=== PATIENT | male | born 1930 | race Caucasian/White ===

== ENCOUNTER 2016-09-24 12:04 | Inpatient (IN) | payer MEDICARE ==
[2016-09-24] MEDS ORDERED: Acetaminophen 325 MG TAB PO PRN (16:35)
[2016-09-24] MEDS ORDERED: Ondansetron ODT 4 MG TAB PO PRN (16:35)
[2016-09-24] MEDS ORDERED: HYDROcodone/Acetaminophen 5/325 mg Tablet PO PRN (16:36)
[2016-09-24] MEDS ORDERED: Warfarin Sodium 2 MG TAB ONE (17:58)
[2016-09-24] MEDS ORDERED: Warfarin Sodium 2 MG TAB PO SCH (18:15)
[2016-09-24] MEDS: Metoprolol Tartrate 50 MG TAB PO SCH (20:13)
[2016-09-24] MEDS: Tamsulosin HCl 0.4 MG CAP PO SCH (20:13)
[2016-09-24] MEDS: Docusate 100 MG CAP PO SCH (20:25)
[2016-09-25 04:56] LABS: #Eosinphils 0.1 thou/uL (0.0-0.7); #Lymphocytes 0.5 thou/uL (1.20-3.40); #Monocytes 0.6 thou/uL (0.11-0.59); #Neutrophils 5.3 thou/uL (1.40-6.50); %Basophils 0.7 % (0.0-1.0); %Eosinophils 1.4 % (0.0-10.0); %Lymphocytes 8.2 % (21.0-51.0); %Monocytes 8.7 % (0.0-10.0); %Neutrophils 80.9 % (42.0-75.0); Hemoglobin 11.2 g/dL (14.0-18.0); Mean Corpuscular HGB CONC 34.1 g/dL (32.0-36.0); Mean Corpuscular Hemoglobin 32.9 pg (27.0-31.0); Mean Corpuscular Volume 96.5 fl (80.0-94.0); Mean Platelet Volume 9.6 fL (7.4-10.4); Platelet Count 210 thou/uL (130-400); RBC Distribution Width 12.4 % (11.5-14.5); White Blood Cell (WBC) Count 6.6 thou/uL (4.8-10.8)
[2016-09-25 04:59] LABS: INR-International Normal Ratio 1.2
--- NOTE | 2016-09-25 06:41 | HP ---
DATE OF ADMISSION: 09/24/2016 ADMITTING PHYSICIAN: Richard Johnson M.D. PRIMARY CARE PHYSICIAN: Dr. Chelsea Sims. REASON FOR ADMISSION: Skilled rehabilitation to [facility] for physical therapy status post open reduction and internal fixation of his left transverse patellar fracture after a fall at home. HISTORY OF PRESENT ILLNESS: Mr. Hardy is an 86-year-old male with a medical history of hypertension, dyslipidemia, kidney stones, prostate cancer, previous [place] and CAD status post cardiac catheterization and stents placement. Patient reports he sustained a fall on 09/12/2016, at his home landing on his left knee. He was evaluated at [facility] on 09/12/2016 and x- rays that reviewed a displaced left patellar fracture. Patient was placed in a knee immobilizer and was seen by Orthopedic surgeon who scheduled a inpatient surgery for 09/21/2016. Patient underwent an open reduction and internal fixation of his left transverse patellar fracture and he tolerated the procedure well. He was doing well status post his surgery and pain was well controlled. Patient started physical therapy while in hospital. He had no complications after the surgery. Due to patient being and living by himself at home, it was recommended he come to [facility] to continue skilled rehabilitation. When I saw patient today, he was happy to be in the [facility]. He denied any fevers, any nausea, vomiting, no recent falls. He complains of some pain to his left knee, but he said pain is well controlled with current pain medication. Patient would like to go home if possible on , but concerned about difficulty going in and out of motor vehicle. Otherwise no concerns, he had a large bowel movement last night after drinking prune juice. PAST MEDICAL HISTORY: 1. Hypertension. 2. Gastroesophageal reflux disease. 3. BPH. 4. History of prostate cancer. 5. Coronary artery disease with history of bypass graft. 6. Atrial fibrillation on chronic, anticoagulant warfarin. PAST SURGICAL HISTORY: Lumbar surgery in [place], [place] in 1991. Cardiac bypass 2013, knee surgery in , kidney stone radiation of prostate cancer in 2004. FAMILY HISTORY: History of strokes and Parkinson's disease. SOCIAL HISTORY: Patient is a former tobacco user. No alcohol use. , retired. MEDICATIONS: Amiodarone 200 daily, amlodipine 10 daily, warfarin 4 mg daily, metoprolol 50 b.i.d., tamsulosin 0.4 daily, furosemide 40 daily, aspirin 81 mg daily, [place] 10/325 one tab q.4 hours p.r.n. pain. ALLERGIES: MORPHINE. REVIEW OF SYSTEMS: General: Patient complains of weakness and left knee pain. Denies melena. Denies any fevers. Eyes: Negative for pain, blurry vision, or discharge. HEENT: Denies sinus pain, sore throat, ear pain discharge. Cardiovascular: Denies chest pain, denies shortness of breath. Respiratory: Denies cough, sputum production. Gastrointestinal: Denies abdominal pain, constipation, diarrhea, hematochezia, or melena. Musculoskeletal: Complains of weakness, knee pain. Neurological: Denies confusion, altered mental status, or headaches. Psychiatric: Denies depression. Skin: Complains of bruising all over bodies status post fall. PHYSICAL EXAMINATION: VITAL SIGNS: Temperature 98.1, respirations 20, pulse 63, O2 sat 96% on room air, blood pressure 135/70. GENERAL APPEARANCE: Patient is alert, awake, oriented x3 in no apparent distress, pleasant. Face no asymmetry. HEENT: Normocephalic, atraumatic. Positive glass. EOM intact. Pupils are round and reactive to light. Clear nares. CARDIOVASCULAR: Regular rate. Normal S1, S2. RESPIRATORY: Clear to auscultation bilaterally. GASTROINTESTINAL: Soft, nontender, positive bowel sounds. EXTREMITIES: No clubbing, no cyanosis, no edema. Left lower extremities with immobilize, dressing to patellar, clean, dry, and intact, mild swelling and tenderness to touch, able to wiggle his toes. SKIN: Multiple black and blue bruises to his left face, left elbow, healing laceration on the left upper eyelid, his right elbow with multiple black and blue bruises. NEUROLOGIC: No focal exam: Reflexes is intact. Pulses +2 bilaterally. ASSESSMENT AND PLAN: This is an 86-year-old male with multiple history listed in the HPI, who was transferred from [facility] in [place] after admission from 09/21-09/24 for skilled rehabilitation status post fall, status fall ORIF of his left patella. Patient will be admitted to [facility] for skilled rehabilitation. We will consult physical therapy for strengthening gait and balance training. We will consult occupational therapy to address activities of daily living, assistive devices. We will restart all patient's home medication. The patient is to follow up with Dr. Navarrete for wound checks in 10-14 days, darling and suture removal to be done on 10/01/2016. We will monitor daily INR and PT as patient is on Coumadin daily. We will give Colace b.i.d. for stool softeners. We will continue patient on Protonix for gastrointestinal prophylaxis since the patient is already on anticoagulants with Coumadin for deep venous thrombosis prophylaxis. We will monitor patient closely for any medical instability or hemodynamic changes. Anticipated length of stay 4-5 weeks. Patient interested in Home health care services upon discharge. CODE STATUS: FULL CODE MTDD
[2016-09-25] MEDS: Aspirin 81 mg Enteric Coated Tablet PO SCH (08:35)
[2016-09-25] MEDS: Docusate 100 MG CAP PO SCH ×2 (08:35→20:12)
[2016-09-25] MEDS: Furosemide 40 MG TAB PO SCH (08:35)
[2016-09-25] MEDS: Metoprolol Tartrate 50 MG TAB PO SCH ×2 (08:36→20:12)
[2016-09-25] MEDS ORDERED: Warfarin Sodium 2 MG TAB PO SCH (17:00)
[2016-09-25] MEDS: Warfarin Sodium 2 MG TAB PO SCH (18:05)
[2016-09-25] MEDS: Tamsulosin HCl 0.4 MG CAP PO SCH (20:12)
[2016-09-26] MEDS: Docusate 100 MG CAP PO SCH ×2 (08:38→20:55)
[2016-09-26] MEDS: Aspirin 81 mg Enteric Coated Tablet PO SCH (08:38)
[2016-09-26] MEDS: Metoprolol Tartrate 50 MG TAB PO SCH ×2 (08:39→20:55)
[2016-09-26] MEDS: Furosemide 40 MG TAB PO SCH (08:39)
[2016-09-26 16:38] LABS: INR-International Normal Ratio 1.3; Prothrombin Time 16.7 SEC (12.0-14.7)
[2016-09-26] MEDS: Warfarin Sodium 2 MG TAB PO SCH (17:09)
[2016-09-26] MEDS: Tamsulosin HCl 0.4 MG CAP PO SCH (20:55)
[2016-09-27 06:06] LABS: Hemoglobin 11.2 g/dL (14.0-18.0); Platelet Count 216 thou/uL (130-400)
[2016-09-27] MEDS: Aspirin 81 mg Enteric Coated Tablet PO SCH (09:19)
[2016-09-27] MEDS: Docusate 100 MG CAP PO SCH ×2 (09:19→22:03)
[2016-09-27] MEDS: Metoprolol Tartrate 50 MG TAB PO SCH ×2 (09:19→22:03)
[2016-09-27] MEDS: Furosemide 40 MG TAB PO SCH (09:19)
[2016-09-27 11:55] LABS: INR-International Normal Ratio 1.5; Prothrombin Time 17.9 SEC (12.0-14.7)
[2016-09-27] MEDS: Warfarin Sodium 2 MG TAB PO SCH (17:40)
[2016-09-27] MEDS: Tamsulosin HCl 0.4 MG CAP PO SCH (22:02)
[2016-09-28 05:05] LABS: INR-International Normal Ratio 1.6; Prothrombin Time 19.5 SEC (12.0-14.7)
[2016-09-28] MEDS: Aspirin 81 mg Enteric Coated Tablet PO SCH (08:48)
[2016-09-28] MEDS: Metoprolol Tartrate 50 MG TAB PO SCH ×2 (08:49→20:28)
[2016-09-28] MEDS: Furosemide 40 MG TAB PO SCH (08:49)
[2016-09-28] MEDS: Docusate 100 MG CAP PO SCH ×2 (08:51→20:27)
[2016-09-28] MEDS: Warfarin Sodium 2.5 MG TAB PO SCH (16:59)
[2016-09-28] MEDS: Tamsulosin HCl 0.4 MG CAP PO SCH (20:28)
[2016-09-29 05:13] LABS: INR-International Normal Ratio 1.9; Prothrombin Time 21.7 SEC (12.0-14.7)
[2016-09-29] MEDS: Metoprolol Tartrate 50 MG TAB PO SCH ×2 (08:31→20:44)
[2016-09-29] MEDS: Furosemide 40 MG TAB PO SCH (08:31)
[2016-09-29] MEDS: Docusate 100 MG CAP PO SCH ×2 (08:31→20:44)
[2016-09-29] MEDS: Aspirin 81 mg Enteric Coated Tablet PO SCH (08:31)
[2016-09-29] MEDS: Warfarin Sodium 2.5 MG TAB PO SCH (17:15)
[2016-09-29] MEDS: Tamsulosin HCl 0.4 MG CAP PO SCH (20:44)
[2016-09-30 05:06] LABS: INR-International Normal Ratio 2.2; Prothrombin Time 24.3 SEC (12.0-14.7)
[2016-09-30] MEDS: Metoprolol Tartrate 50 MG TAB PO SCH ×2 (08:48→21:17)
[2016-09-30] MEDS: Aspirin 81 mg Enteric Coated Tablet PO SCH (08:48)
[2016-09-30] MEDS: Docusate 100 MG CAP PO SCH ×2 (08:48→21:17)
[2016-09-30] MEDS: Furosemide 40 MG TAB PO SCH (08:48)
[2016-09-30] MEDS: Warfarin Sodium 2.5 MG TAB PO SCH (17:09)
[2016-09-30] MEDS: Tamsulosin HCl 0.4 MG CAP PO SCH (21:17)
[2016-10-01] MEDS: Metoprolol Tartrate 50 MG TAB PO SCH ×2 (08:39→22:40)
[2016-10-01] MEDS: Docusate 100 MG CAP PO SCH ×2 (08:39→22:40)
[2016-10-01] MEDS: Furosemide 40 MG TAB PO SCH (08:39)
[2016-10-01] MEDS: Aspirin 81 mg Enteric Coated Tablet PO SCH (08:39)
[2016-10-01] MEDS: Warfarin Sodium 2.5 MG TAB PO SCH (17:14)
[2016-10-01] MEDS ORDERED: Docusate 100 MG CAP ONE (21:39)
[2016-10-01] MEDS: Tamsulosin HCl 0.4 MG CAP PO SCH (22:40)
[2016-10-02 05:55] LABS: INR-International Normal Ratio 3.1; Prothrombin Time 31.2 SEC (12.0-14.7)
[2016-10-02] MEDS: Docusate 100 MG CAP PO SCH ×2 (08:33→20:43)
[2016-10-02] MEDS: Aspirin 81 mg Enteric Coated Tablet PO SCH (08:36)
[2016-10-02] MEDS: Furosemide 40 MG TAB PO SCH (08:36)
[2016-10-02] MEDS: Metoprolol Tartrate 50 MG TAB PO SCH ×2 (08:36→20:43)
[2016-10-02] MEDS ORDERED: Warfarin Sodium 5 MG TAB PO SCH (17:00)
[2016-10-02] MEDS: Tamsulosin HCl 0.4 MG CAP PO SCH (20:43)
[2016-10-03] MEDS: Aspirin 81 mg Enteric Coated Tablet PO SCH (08:51)
[2016-10-03] MEDS: Metoprolol Tartrate 50 MG TAB PO SCH ×2 (08:51→20:15)
[2016-10-03] MEDS: Furosemide 40 MG TAB PO SCH (08:52)
[2016-10-03] MEDS: Docusate 100 MG CAP PO SCH ×2 (08:52→20:15)
[2016-10-03 09:44] LABS: INR-International Normal Ratio 3.4; Prothrombin Time 33.7 SEC (12.0-14.7)
[2016-10-03] MEDS: Warfarin Sodium 5 MG TAB PO SCH (17:13)
[2016-10-03] MEDS: Tamsulosin HCl 0.4 MG CAP PO SCH (20:15)
[2016-10-04] MEDS: Metoprolol Tartrate 50 MG TAB PO SCH ×2 (08:54→20:58)
[2016-10-04] MEDS: Docusate 100 MG CAP PO SCH ×2 (08:54→20:58)
[2016-10-04] MEDS: Aspirin 81 mg Enteric Coated Tablet PO SCH (08:54)
[2016-10-04] MEDS: Furosemide 40 MG TAB PO SCH (08:55)
[2016-10-04 10:14] LABS: INR-International Normal Ratio 3.6; Prothrombin Time 35.6 SEC (12.0-14.7)
[2016-10-04] MEDS: Warfarin Sodium 5 MG TAB PO SCH (17:25)
[2016-10-04] MEDS: Tamsulosin HCl 0.4 MG CAP PO SCH (20:57)
[2016-10-05] MEDS: Docusate 100 MG CAP PO SCH ×2 (08:01→20:34)
[2016-10-05] MEDS: Aspirin 81 mg Enteric Coated Tablet PO SCH (08:02)
[2016-10-05] MEDS: Metoprolol Tartrate 50 MG TAB PO SCH ×2 (08:02→20:34)
[2016-10-05] MEDS: Furosemide 40 MG TAB PO SCH (08:02)
[2016-10-05 10:04] LABS: Prothrombin Time 38.2 SEC (12.0-14.7)
[2016-10-05] MEDS: Tamsulosin HCl 0.4 MG CAP PO SCH (20:34)
[2016-10-06 05:14] LABS: Prothrombin Time 38.5 SEC (12.0-14.7)
[2016-10-06] MEDS: Metoprolol Tartrate 50 MG TAB PO SCH ×2 (08:17→21:00)
[2016-10-06] MEDS: Aspirin 81 mg Enteric Coated Tablet PO SCH (08:17)
[2016-10-06] MEDS: Furosemide 40 MG TAB PO SCH (08:17)
[2016-10-06] MEDS: Docusate 100 MG CAP PO SCH ×2 (08:18→21:00)
[2016-10-06] MEDS: Tamsulosin HCl 0.4 MG CAP PO SCH (21:00)
[2016-10-07] MEDS: Metoprolol Tartrate 50 MG TAB PO SCH ×2 (08:42→20:50)
[2016-10-07] MEDS: Aspirin 81 mg Enteric Coated Tablet PO SCH (08:42)
[2016-10-07] MEDS: Furosemide 40 MG TAB PO SCH (08:43)
[2016-10-07] MEDS: Docusate 100 MG CAP PO SCH ×2 (08:43→20:50)
[2016-10-07 13:18] LABS: INR-International Normal Ratio 2.9; Prothrombin Time 29.8 SEC (12.0-14.7)
[2016-10-07] MEDS ORDERED: Warfarin Sodium 5 MG TAB PO SCH (17:00)
[2016-10-07] MEDS: Warfarin Sodium 2.5 MG TAB PO SCH (17:14)
[2016-10-07] MEDS: Tamsulosin HCl 0.4 MG CAP PO SCH (20:50)
[2016-10-08 05:12] LABS: INR-International Normal Ratio 2.8; Prothrombin Time 28.9 SEC (12.0-14.7)
[2016-10-08] MEDS: Metoprolol Tartrate 50 MG TAB PO SCH ×2 (08:27→20:15)
[2016-10-08] MEDS: Furosemide 40 MG TAB PO SCH (08:28)
[2016-10-08] MEDS: Aspirin 81 mg Enteric Coated Tablet PO SCH (08:28)
[2016-10-08] MEDS: Docusate 100 MG CAP PO SCH ×2 (08:28→20:15)
[2016-10-08] MEDS: Warfarin Sodium 2.5 MG TAB PO SCH (17:04)
[2016-10-08] MEDS: Tamsulosin HCl 0.4 MG CAP PO SCH (20:15)
[2016-10-09 07:11] LABS: INR-International Normal Ratio 2.4; Prothrombin Time 26.2 SEC (12.0-14.7)
[2016-10-09] MEDS: Docusate 100 MG CAP PO SCH ×2 (08:40→21:05)
[2016-10-09] MEDS: Furosemide 40 MG TAB PO SCH (08:40)
[2016-10-09] MEDS: Aspirin 81 mg Enteric Coated Tablet PO SCH (08:40)
[2016-10-09] MEDS: Metoprolol Tartrate 50 MG TAB PO SCH ×2 (08:40→21:04)
[2016-10-09] MEDS: Warfarin Sodium 2.5 MG TAB PO SCH (17:05)
[2016-10-09] MEDS: Tamsulosin HCl 0.4 MG CAP PO SCH (21:04)
[2016-10-10] MEDS: Aspirin 81 mg Enteric Coated Tablet PO SCH (08:21)
[2016-10-10] MEDS: Furosemide 40 MG TAB PO SCH (08:21)
[2016-10-10] MEDS: Docusate 100 MG CAP PO SCH ×2 (08:21→21:19)
[2016-10-10] MEDS: Metoprolol Tartrate 50 MG TAB PO SCH ×2 (08:21→21:18)
[2016-10-10 17:11] LABS: INR-International Normal Ratio 2.1; Prothrombin Time 23.7 SEC (12.0-14.7)
[2016-10-10] MEDS: Warfarin Sodium 2.5 MG TAB PO SCH (17:25)
[2016-10-10] MEDS: Tamsulosin HCl 0.4 MG CAP PO SCH (21:24)
[2016-10-11] MEDS: Docusate 100 MG CAP PO SCH ×2 (08:22→20:18)
[2016-10-11] MEDS: Metoprolol Tartrate 50 MG TAB PO SCH ×2 (08:22→20:17)
[2016-10-11] MEDS: Furosemide 40 MG TAB PO SCH (08:23)
[2016-10-11] MEDS: Aspirin 81 mg Enteric Coated Tablet PO SCH (08:23)
[2016-10-11] MEDS: Warfarin Sodium 2.5 MG TAB PO SCH (17:01)
[2016-10-11] MEDS: Tamsulosin HCl 0.4 MG CAP PO SCH (20:17)
[2016-10-12] MEDS: Docusate 100 MG CAP PO SCH ×2 (08:15→20:25)
[2016-10-12] MEDS: Aspirin 81 mg Enteric Coated Tablet PO SCH (08:15)
[2016-10-12] MEDS: Metoprolol Tartrate 50 MG TAB PO SCH ×2 (08:15→20:25)
[2016-10-12] MEDS: Furosemide 40 MG TAB PO SCH (08:16)
[2016-10-12 16:27] LABS: INR-International Normal Ratio 1.9; Prothrombin Time 21.6 SEC (12.0-14.7)
[2016-10-12] MEDS: Warfarin Sodium 2.5 MG TAB PO SCH (17:13)
[2016-10-12] MEDS: Tamsulosin HCl 0.4 MG CAP PO SCH (20:25)
[2016-10-13 04:58] VITALS: BMI 30.7
[2016-10-13] MEDS: Metoprolol Tartrate 50 MG TAB PO SCH ×2 (08:16→20:17)
[2016-10-13] MEDS: Aspirin 81 mg Enteric Coated Tablet PO SCH (08:16)
[2016-10-13] MEDS: Docusate 100 MG CAP PO SCH ×2 (08:17→20:17)
[2016-10-13] MEDS: Furosemide 40 MG TAB PO SCH (08:17)
[2016-10-13 16:55] LABS: INR-International Normal Ratio 1.8; Prothrombin Time 20.6 SEC (12.0-14.7)
[2016-10-13] MEDS: Warfarin Sodium 2.5 MG TAB PO SCH (17:02)
[2016-10-13] MEDS: Tamsulosin HCl 0.4 MG CAP PO SCH (20:16)
[2016-10-14 05:01] LABS: INR-International Normal Ratio 1.7
[2016-10-14] MEDS: Docusate 100 MG CAP PO SCH ×2 (08:18→20:36)
[2016-10-14] MEDS: Metoprolol Tartrate 50 MG TAB PO SCH ×2 (08:19→20:36)
[2016-10-14] MEDS: Furosemide 40 MG TAB PO SCH (08:19)
[2016-10-14] MEDS: Aspirin 81 mg Enteric Coated Tablet PO SCH (08:19)
[2016-10-14] MEDS ORDERED: Warfarin Sodium 2 MG TAB PO SCH (17:00)
[2016-10-14] MEDS: Warfarin Sodium 1 MG TAB PO SCH (17:18)
[2016-10-14 20:01] LABS: Bilirubin Negative (Negative); Blood, Urine Small (Negative); Clarity Cloudy (Clear); Glucose, Urine (Dipstick) Negative (Negative); Leukocyte Moderate (Negative); Nitrite Positive (Negative); Protein, Urine (Dipstick) Negative (Neg-Trace); Specific Gravity, Urine 1.015 (1.005-1.030); Urobilinogen 0.2 mg/dL (0.2-1.0)
[2016-10-14 20:09] LABS: Bacteria/HPF 3+ HPF (None Seen); Squamous Epithelial 0-3 HPF (0-3)
[2016-10-14] MEDS: Tamsulosin HCl 0.4 MG CAP PO SCH (20:36)
[2016-10-15 05:06] LABS: INR-International Normal Ratio 1.5; Prothrombin Time 18.5 SEC (12.0-14.7)
[2016-10-15] MEDS: Docusate 100 MG CAP PO SCH ×2 (08:30→20:50)
[2016-10-15] MEDS: Metoprolol Tartrate 50 MG TAB PO SCH ×2 (08:30→20:50)
[2016-10-15] MEDS: Aspirin 81 mg Enteric Coated Tablet PO SCH (08:30)
[2016-10-15] MEDS: Furosemide 40 MG TAB PO SCH (08:30)
[2016-10-15] MEDS: Warfarin Sodium 1 MG TAB PO SCH (17:08)
[2016-10-15] MEDS: Tamsulosin HCl 0.4 MG CAP PO SCH (20:50)
[2016-10-16 04:59] LABS: INR-International Normal Ratio 1.5
[2016-10-16] MEDS: Metoprolol Tartrate 50 MG TAB PO SCH ×2 (08:18→21:03)
[2016-10-16] MEDS: Docusate 100 MG CAP PO SCH ×2 (08:19→21:03)
[2016-10-16] MEDS: Aspirin 81 mg Enteric Coated Tablet PO SCH (08:19)
[2016-10-16] MEDS: Furosemide 40 MG TAB PO SCH (08:19)
[2016-10-16] MEDS: Warfarin Sodium 2 MG TAB PO SCH (17:22)
[2016-10-16] MEDS: Tamsulosin HCl 0.4 MG CAP PO SCH (21:03)
[2016-10-17 07:44] LABS: INR-International Normal Ratio 1.5; Prothrombin Time 18.2 SEC (12.0-14.7)
[2016-10-17] MEDS: Aspirin 81 mg Enteric Coated Tablet PO SCH (08:27)
[2016-10-17] MEDS: Docusate 100 MG CAP PO SCH ×2 (08:28→20:54)
[2016-10-17] MEDS: Furosemide 40 MG TAB PO SCH (08:28)
[2016-10-17] MEDS: Metoprolol Tartrate 50 MG TAB PO SCH ×2 (08:28→20:55)
[2016-10-17] MEDS ORDERED: Nitrofurantoin Monohyd/M-Cryst 100 MG CAP PO SCH (12:15)
[2016-10-17] MEDS: Warfarin Sodium 2 MG TAB PO SCH (17:11)
[2016-10-17] MEDS: Nitrofurantoin Monohyd/M-Cryst 100 MG CAP PO SCH (20:54)
[2016-10-17] MEDS: Tamsulosin HCl 0.4 MG CAP PO SCH (20:55)
[2016-10-18 08:14] LABS: INR-International Normal Ratio 1.6; Prothrombin Time 19.2 SEC (12.0-14.7)
[2016-10-18] MEDS: Nitrofurantoin Monohyd/M-Cryst 100 MG CAP PO SCH ×2 (08:45→21:02)
[2016-10-18] MEDS: Furosemide 40 MG TAB PO SCH (08:45)
[2016-10-18] MEDS: Metoprolol Tartrate 50 MG TAB PO SCH ×2 (08:45→21:02)
[2016-10-18] MEDS: Aspirin 81 mg Enteric Coated Tablet PO SCH (08:45)
[2016-10-18] MEDS: Docusate 100 MG CAP PO SCH ×2 (08:45→21:02)
[2016-10-18] MEDS: Warfarin Sodium 2 MG TAB PO SCH (17:10)
[2016-10-18] MEDS: Tamsulosin HCl 0.4 MG CAP PO SCH (21:02)
[2016-10-19 05:33] LABS: INR-International Normal Ratio 1.8; Prothrombin Time 20.8 SEC (12.0-14.7)
[2016-10-19] MEDS: Docusate 100 MG CAP PO SCH ×2 (08:07→20:11)
[2016-10-19] MEDS: Nitrofurantoin Monohyd/M-Cryst 100 MG CAP PO SCH ×2 (08:07→20:11)
[2016-10-19] MEDS: Furosemide 40 MG TAB PO SCH (08:07)
[2016-10-19] MEDS: Aspirin 81 mg Enteric Coated Tablet PO SCH (08:07)
[2016-10-19] MEDS: Metoprolol Tartrate 50 MG TAB PO SCH ×2 (08:08→20:11)
[2016-10-19] MEDS: Warfarin Sodium 2 MG TAB PO SCH (17:07)
[2016-10-19] MEDS: Tamsulosin HCl 0.4 MG CAP PO SCH (20:11)
[2016-10-20 04:55] LABS: INR-International Normal Ratio 1.8; Prothrombin Time 21.2 SEC (12.0-14.7)
[2016-10-20] MEDS: Nitrofurantoin Monohyd/M-Cryst 100 MG CAP PO SCH ×2 (09:39→20:31)
[2016-10-20] MEDS: Aspirin 81 mg Enteric Coated Tablet PO SCH (09:39)
[2016-10-20] MEDS: Docusate 100 MG CAP PO SCH ×2 (09:40→20:31)
[2016-10-20] MEDS: Furosemide 40 MG TAB PO SCH (09:40)
[2016-10-20] MEDS: Metoprolol Tartrate 50 MG TAB PO SCH ×2 (09:40→20:31)
[2016-10-20] MEDS: Warfarin Sodium 2 MG TAB PO SCH (17:15)
[2016-10-20] MEDS: Tamsulosin HCl 0.4 MG CAP PO SCH (20:31)
[2016-10-21 05:06] LABS: INR-International Normal Ratio 2.1; Prothrombin Time 23.6 SEC (12.0-14.7)
[2016-10-21] MEDS: Docusate 100 MG CAP PO SCH ×2 (09:10→20:33)
[2016-10-21] MEDS: Aspirin 81 mg Enteric Coated Tablet PO SCH (09:10)
[2016-10-21] MEDS: Nitrofurantoin Monohyd/M-Cryst 100 MG CAP PO SCH ×2 (09:10→20:33)
[2016-10-21] MEDS: Furosemide 40 MG TAB PO SCH (09:10)
[2016-10-21] MEDS: Metoprolol Tartrate 50 MG TAB PO SCH ×2 (09:10→20:33)
[2016-10-21] MEDS: Warfarin Sodium 2 MG TAB PO SCH (17:17)
[2016-10-21] MEDS: Tamsulosin HCl 0.4 MG CAP PO SCH (20:33)
[2016-10-22 05:00] LABS: INR-International Normal Ratio 2.1; Prothrombin Time 23.9 SEC (12.0-14.7)
[2016-10-22] MEDS: Aspirin 81 mg Enteric Coated Tablet PO SCH (08:17)
[2016-10-22] MEDS: Furosemide 40 MG TAB PO SCH (08:18)
[2016-10-22] MEDS: Metoprolol Tartrate 50 MG TAB PO SCH ×2 (08:18→19:51)
[2016-10-22] MEDS: Docusate 100 MG CAP PO SCH ×2 (08:18→19:50)
[2016-10-22] MEDS: Nitrofurantoin Monohyd/M-Cryst 100 MG CAP PO SCH ×2 (08:18→19:51)
[2016-10-22] MEDS: Warfarin Sodium 2 MG TAB PO SCH (17:14)
[2016-10-22] MEDS: Tamsulosin HCl 0.4 MG CAP PO SCH (19:50)
[2016-10-23 04:55] LABS: INR-International Normal Ratio 2.1; Prothrombin Time 23.9 SEC (12.0-14.7)
[2016-10-23] MEDS: Aspirin 81 mg Enteric Coated Tablet PO SCH (08:10)
[2016-10-23] MEDS: Nitrofurantoin Monohyd/M-Cryst 100 MG CAP PO SCH ×2 (08:10→20:45)
[2016-10-23] MEDS: Furosemide 40 MG TAB PO SCH (08:11)
[2016-10-23] MEDS: Metoprolol Tartrate 50 MG TAB PO SCH ×2 (08:11→20:45)
[2016-10-23] MEDS: Docusate 100 MG CAP PO SCH ×2 (08:11→20:45)
[2016-10-23] MEDS: Warfarin Sodium 2 MG TAB PO SCH (17:30)
[2016-10-23] MEDS: Tamsulosin HCl 0.4 MG CAP PO SCH (20:45)
[2016-10-24] MEDS: Nitrofurantoin Monohyd/M-Cryst 100 MG CAP PO SCH ×2 (08:06→20:26)
[2016-10-24] MEDS: Aspirin 81 mg Enteric Coated Tablet PO SCH (08:06)
[2016-10-24] MEDS: Metoprolol Tartrate 50 MG TAB PO SCH ×2 (08:06→20:26)
[2016-10-24] MEDS: Docusate 100 MG CAP PO SCH ×2 (08:06→20:26)
[2016-10-24] MEDS: Furosemide 40 MG TAB PO SCH (08:06)
[2016-10-24] MEDS: Warfarin Sodium 2 MG TAB PO SCH (18:30)
[2016-10-24] MEDS: Tamsulosin HCl 0.4 MG CAP PO SCH (20:26)
[2016-10-25] MEDS: Metoprolol Tartrate 50 MG TAB PO SCH ×2 (08:57→20:49)
[2016-10-25] MEDS: Nitrofurantoin Monohyd/M-Cryst 100 MG CAP PO SCH ×2 (08:57→20:49)
[2016-10-25] MEDS: Furosemide 40 MG TAB PO SCH (08:58)
[2016-10-25] MEDS: Aspirin 81 mg Enteric Coated Tablet PO SCH (08:58)
[2016-10-25] MEDS: Docusate 100 MG CAP PO SCH ×2 (08:58→20:49)
[2016-10-25] MEDS: Warfarin Sodium 2 MG TAB PO SCH (17:35)
[2016-10-25] MEDS: Tamsulosin HCl 0.4 MG CAP PO SCH (20:49)
[2016-10-26 07:17] LABS: INR-International Normal Ratio 2.6; Prothrombin Time 27.5 SEC (12.0-14.7)
[2016-10-26] MEDS: Metoprolol Tartrate 50 MG TAB PO SCH ×2 (08:30→20:58)
[2016-10-26] MEDS: Nitrofurantoin Monohyd/M-Cryst 100 MG CAP PO SCH ×2 (08:30→20:58)
[2016-10-26] MEDS: Aspirin 81 mg Enteric Coated Tablet PO SCH (08:30)
[2016-10-26] MEDS: Furosemide 40 MG TAB PO SCH (08:31)
[2016-10-26] MEDS: Docusate 100 MG CAP PO SCH ×2 (08:34→20:58)
[2016-10-26] MEDS: Warfarin Sodium 2 MG TAB PO SCH (17:03)
[2016-10-26] MEDS: Tamsulosin HCl 0.4 MG CAP PO SCH (20:58)
[2016-10-27 04:58] LABS: INR-International Normal Ratio 2.7; Prothrombin Time 28.8 SEC (12.0-14.7)
[2016-10-27] MEDS: Docusate 100 MG CAP PO SCH ×2 (09:03→20:58)
[2016-10-27] MEDS: Aspirin 81 mg Enteric Coated Tablet PO SCH (09:03)
[2016-10-27] MEDS: Furosemide 40 MG TAB PO SCH (09:04)
[2016-10-27] MEDS: Metoprolol Tartrate 50 MG TAB PO SCH ×2 (09:04→20:58)
[2016-10-27] MEDS: Warfarin Sodium 2 MG TAB PO SCH (17:18)
[2016-10-27] MEDS: Tamsulosin HCl 0.4 MG CAP PO SCH (20:58)
[2016-10-28] MEDS: Furosemide 40 MG TAB PO SCH (08:20)
[2016-10-28] MEDS: Metoprolol Tartrate 50 MG TAB PO SCH ×2 (08:20→20:30)
[2016-10-28] MEDS: Docusate 100 MG CAP PO SCH ×2 (08:22→20:31)
[2016-10-28] MEDS: Aspirin 81 mg Enteric Coated Tablet PO SCH (08:22)
[2016-10-28] MEDS: Warfarin Sodium 2 MG TAB PO SCH (16:07)
[2016-10-28] MEDS: Tamsulosin HCl 0.4 MG CAP PO SCH (20:30)
[2016-10-29] MEDS: Docusate 100 MG CAP PO SCH ×2 (08:22→20:50)
[2016-10-29] MEDS: Aspirin 81 mg Enteric Coated Tablet PO SCH (08:23)
[2016-10-29] MEDS: Furosemide 40 MG TAB PO SCH (08:24)
[2016-10-29] MEDS: Metoprolol Tartrate 50 MG TAB PO SCH ×2 (08:24→20:50)
[2016-10-29] MEDS: Warfarin Sodium 2 MG TAB PO SCH (16:59)
[2016-10-29 19:48] VITALS: TEMP 98
[2016-10-29] MEDS: Tamsulosin HCl 0.4 MG CAP PO SCH (20:50)
[2016-10-30 08:16] VITALS: BP 115/63
[2016-10-30] MEDS: Furosemide 40 MG TAB PO SCH (08:38)
[2016-10-30] MEDS: Metoprolol Tartrate 50 MG TAB PO SCH (08:39)
[2016-10-30] MEDS: Aspirin 81 mg Enteric Coated Tablet PO SCH (08:39)
[2016-10-30] MEDS: Docusate 100 MG CAP PO SCH (08:39)
[2016-10-30 10:08] LABS: INR-International Normal Ratio 2.7; PTT 51.9 SEC (22.9-36.1); Prothrombin Time 28.7 SEC (12.0-14.7)
--- NOTE | 2016-11-04 23:14 | DIS ---
DATE OF ADMISSION: 09/24/2016 DATE OF DISCHARGE: 10/30/2016 REASON FOR ADMISSION: Skilled rehabilitation after ORIF. DISCHARGE DIAGNOSES: 1. Deconditioning. 2. Left transverse patellar fracture status post open reduction internal fixation. 3. Fall at home. 4. Chronic atrial fibrillation, anticoagulated with warfarin, complicated with supratherapeutic INR, resolved. 5. Unsteady gait. SECONDARY DIAGNOSES: 1. Hypertension. 2. Gastroesophageal reflux disease. 3. Benign prostatic hyperplasia. 4. Coronary artery disease, status post graft. 5. History of prostate cancer. DISPOSITION: Home. CONDITION ON DISCHARGE: Stable. HOME MEDICATIONS: 1. Coumadin 4 mg p.o. daily. 2. Amiodarone 200 mg p.o. daily. 3. Aspirin 81 mg p.o. daily. 4. Docusate 100 mg p.o. b.i.d. p.r.n. 5. Furosemide 40 mg p.o. daily. 6. Hydrocodone 5/325 mg 1-2 tablets q.4 hours p.r.n. for pain. 7. Metoprolol 50 mg p.o. b.i.d. 8. Tamsulosin 0.4 mg p.o. q.p.m. 9. Amlodipine 10 mg p.o. daily. DIET: AHA. ACTIVITIES: Ad ralph. FOLLOWUP: 1. With Dr. Sims in 1-2 weeks. 2. Outpatient lab, repeat PT/INR on 11/02/2016. 3. To continue therapy with outpatient therapy at [facility] rehabilitation. 4. Fall precautions. 5. Follow up with Dr Navarrete in 3-4 week's or as previously scheduled. HISTORY OF PRESENT ILLNESS AND HOSPITAL COURSE: Mr. Hardy is a very pleasant 86-year-old male with significant history of hypertension, prostate cancer, dyslipidemia, CAD status post cardiac catheterization and stent placement, previous CA, BPH, and chronic anticoagulation with Coumadin for chronic atrial fibrillation. The patient apparently had a fall on 09/12/2016 at home, landing on his left knee. The patient sustained a left patellar fracture and displacement. Patient underwent ORIF on 09/21/[address] Navarrete. His postoperative course was uncomplicated. Patient was subsequently transferred to [facility] on 09/24/2016 to complete therapy for purposes of skilled rehabilitation prior to going back to the home environment. The patient's overall functional mobility and status improved in a gradual manner.The patient was walking 250 feet x2 using a single tip cane prior to discharge. During this hospitalization, patient had issues with his Coumadin. There was initially subtherapeutic INR versus Coumadin was titrated up, then followed by supratherapeutic levels. After subsequent titration of his Coumadin, patient is now stable at Coumadin 4 mg p.o. daily, which appeared to be his baseline Coumadin dose per home meds. His INR prior to discharge was 2.7 on 10/30/2016. Also, during his hospital stay, the patient had a UTI with E. coli. Patient treated appropriately with oral antibiotic and did well. Patient was set up to follow up with [facility]- Outpatient therapy per request, to ensure that he will reached back his baseline functional ambulatory status as he lives by himself. His daughter ans on inlaw who help patient lives nearby and visit the patient in a routine basis. He was also set up to follow up with Ortho in a month's time or as previously scheduled. Other labs on 09/27/2016, hemoglobin 11.2, hematocrit 33.4, platelets 216. Prostate specific antigen 0.33 on 10/14/2016. Vital signs prior to discharge: Blood pressure 115/63, temperature 98, respiration 12-18, O2 saturation 97%, pulse 60. Time spent in examining the patient and coordinating care is 32 minutes. [facility]
== END 2016-10-30 13:01 | disposition home or self-care (01) | DRG 561 ==
LOC: MADMS 12:54
PROVIDERS: ADMIT Family Medicine; ATTEND Family Medicine
DX: S82.032D Displaced transverse fracture of left patella, subsequent encounter for closed fracture with routine healing (principal); Z95.1 Presence of aortocoronary bypass graft; I48.2 Chronic atrial fibrillation; I10 Essential (primary) hypertension; W19.XXXD Unspecified fall, subsequent encounter; K21.9 Gastro-esophageal reflux disease without esophagitis; N40.0 Benign prostatic hyperplasia without lower urinary tract symptoms; I25.10 Atherosclerotic heart disease of native coronary artery without angina pectoris; Z85.46 Personal history of malignant neoplasm of prostate; Z79.01 Long term (current) use of anticoagulants
CPT/HCPCS: 36415; 81001; 85014; 85018; 85025; 85049; 85610; 85730; 87077; 87086; 87186; G0103; G8978-GP-CI; G8978-GP-CK; G8979-GP-CI

== ENCOUNTER 2016-11-03 07:21 | Outpatient (CLI) | payer MEDICARE ==
[2016-11-03 07:56] LABS: INR-International Normal Ratio 2.3; Prothrombin Time 24.8 SEC (12.0-14.7)
== END 2016-11-03 07:22 | disposition home or self-care (01) ==
LOC: MADLAB 07:21
PROVIDERS: ATTEND Family Medicine
DX: Z51.81 Encounter for therapeutic drug level monitoring (principal); Z79.01 Long term (current) use of anticoagulants
CPT/HCPCS: 36415; 85610

== ENCOUNTER 2016-11-10 08:12 | Outpatient (CLI) | payer MEDICARE ==
[2016-11-10 08:39] LABS: INR-International Normal Ratio 2.6
== END 2016-11-10 08:13 | disposition home or self-care (01) ==
LOC: MADLABBHPM 08:12
PROVIDERS: ATTEND Family Medicine
DX: Z51.81 Encounter for therapeutic drug level monitoring (principal); Z79.01 Long term (current) use of anticoagulants
CPT/HCPCS: 36415; 85610

== ENCOUNTER 2016-11-30 09:17 | Outpatient (CLI) | payer MEDICARE ==
[2016-11-30 09:50] LABS: INR-International Normal Ratio 2.6; Prothrombin Time 27.8 SEC (12.0-14.7)
== END 2016-11-30 09:18 | disposition home or self-care (01) ==
LOC: MADLABBHPM 09:17
PROVIDERS: ATTEND Family Medicine
DX: Z51.81 Encounter for therapeutic drug level monitoring (principal); Z79.01 Long term (current) use of anticoagulants
CPT/HCPCS: 36415; 85610

== ENCOUNTER 2016-12-21 10:13 | Outpatient (CLI) | payer MEDICARE ==
[2016-12-21 10:37] LABS: INR-International Normal Ratio 2.5
== END 2016-12-21 10:14 | disposition home or self-care (01) ==
LOC: MADLAB 10:13
PROVIDERS: ATTEND Family Medicine
DX: Z51.81 Encounter for therapeutic drug level monitoring (principal); Z79.01 Long term (current) use of anticoagulants
CPT/HCPCS: 36415; 85610

== ENCOUNTER 2017-01-18 09:09 | Outpatient (CLI) | payer MEDICARE ==
[2017-01-18 10:02] LABS: INR-International Normal Ratio 2.6; Prothrombin Time 27.5 SEC (12.0-14.7)
== END 2017-01-18 09:10 | disposition home or self-care (01) ==
LOC: MADLAB 09:09
PROVIDERS: ATTEND Family Medicine
DX: Z51.81 Encounter for therapeutic drug level monitoring (principal); Z79.01 Long term (current) use of anticoagulants
CPT/HCPCS: 36415; 85610

== ENCOUNTER 2017-02-01 14:03 | Outpatient (CLI) | payer MEDICARE ==
[2017-02-01 15:28] LABS: INR-International Normal Ratio 2.1; Prothrombin Time 23.5 SEC (12.0-14.7)
--- NOTE | 2017-02-01 16:41 | RAD ---
THREE VIEWS OF THE LUMBAR SPINE: Indication: Fall with back pain. FINDINGS: Since the comparison MR of the lumbar spine dated 04-25-15, there has been interval development of a mild wedge compression abnormality of T12. There is aortobiiliac stent. There is a left ureteral rosita nt in place. There is diffuse osteopenia. No additional acute osseous abnormality is evident. IMPRESSION: 1. Moderate wedge compression abnormality at T12 of undetermined chronicity. If clinically indicated , further evaluation with an MRI of the lumbar spine or bone scan may be helpful to document acuity. 2. No additional acute osseous abnormality. POS: [facility]
--- NOTE | 2017-02-01 16:43 | RAD ---
TWO VIEWS OF THE THORACIC SPINE: Indication: Fall one week ago with back pain. FINDINGS: There is a moderate wedge compression abnormality of T12 of indeterminate chronicity. There is multi level spondylosis. There is post-surgical change of prior CABG. There is diffuse osteopenia. IMPRESSION: 1. Age indeterminate T12 compression abnormality. Further evaluation with a bone scan or MRI may be helpful to document acuity. 2. Multilevel spondylosis of the thoracic spine. POS: [facility]
--- NOTE | 2017-02-01 18:23 | RAD ---
THREE VIEWS OF THE LEFT SHOULDER: Date: 02-01-17 History: Injury after fall one week ago. Comparison: 09-12-16 FINDINGS: There is osteoarthritis involving the left glenohumeral joint with mild glenohumeral osteoarthropath y. No fracture or dislocation is seen. Vascular calcification is seen in the region of the aortic ar ch with median sternotomy wires partially imaged. There has been no interval change compared to the prior exam. IMPRESSION: No acute osseous abnormality involving the left shoulder. POS: [facility]
== END 2017-02-01 14:04 | disposition home or self-care (01) ==
LOC: MADLABBHPM 14:03
PROVIDERS: ATTEND Family Medicine
DX: S40.019D Contusion of unspecified shoulder, subsequent encounter (principal); M25.512 Pain in left shoulder; Z79.01 Long term (current) use of anticoagulants; M47.814 Spondylosis without myelopathy or radiculopathy, thoracic region
CPT/HCPCS: 36415; 72070; 72100; 85610

== ENCOUNTER 2017-03-01 08:02 | Outpatient (CLI) | payer MEDICARE ==
[2017-03-01 09:09] LABS: INR-International Normal Ratio 3.5; Prothrombin Time 34.9 SEC (12.0-14.7)
== END 2017-03-01 08:03 | disposition home or self-care (01) ==
LOC: MADLABBHPM 08:02
PROVIDERS: ATTEND Family Medicine
DX: Z51.81 Encounter for therapeutic drug level monitoring (principal); Z79.01 Long term (current) use of anticoagulants
CPT/HCPCS: 36415; 85610

== ENCOUNTER 2017-03-09 10:38 | Outpatient (CLI) | payer MEDICARE ==
[2017-03-09 11:09] LABS: INR-International Normal Ratio 2.1; Prothrombin Time 23.3 SEC (12.0-14.7)
== END 2017-03-09 10:39 | disposition home or self-care (01) ==
LOC: MADLABBHPM 10:38
PROVIDERS: ATTEND Family Medicine
DX: Z51.81 Encounter for therapeutic drug level monitoring (principal); Z79.01 Long term (current) use of anticoagulants
CPT/HCPCS: 36415; 85610

== ENCOUNTER 2017-04-01 08:01 | Outpatient (CLI) | payer MEDICARE ==
[2017-04-01 08:39] LABS: INR-International Normal Ratio 2.5; Prothrombin Time 27.1 SEC (12.0-14.7)
== END 2017-04-01 08:02 | disposition home or self-care (01) ==
LOC: MADLABBHPM 08:01
PROVIDERS: ATTEND Family Medicine
DX: Z51.81 Encounter for therapeutic drug level monitoring (principal); Z79.01 Long term (current) use of anticoagulants
CPT/HCPCS: 36415; 85610

== ENCOUNTER 2017-04-09 11:08 | Outpatient (CLI) | payer MEDICARE ==
--- NOTE | 2017-04-09 13:42 | RAD ---
CERVICAL SPINE 5 VIEWS: Date: 04/09/17 HISTORY: Patient fell several months ago. Pain. COMPARISON: None. CORRELATION: Cervical spine CT dated 09/12/16 and cervical spine MRI dated 03/08/17. FINDINGS: Limited evaluation of the left neural foramina on the oblique projection. Upper left neural foramina appear to be patent. The right neural foramina appear to be patent on the left oblique projection. On the AP projection, there are mild degenerative changes of the posterior elements. No obvious dipti lignment or obvious fracture. Prevertebral soft tissue is normal. No evidence of swelling. Predental space is normal. Limited eval uation of the odontoid process on the open-mouth projection. Multilevel degenerative disc disease with loss of disc space height and osteophyte formation through out the cervical spine. There appears to be chronic loss of vertebral body height at C6, incompletel y evaluated. Please refer to cervical spine MRI for further detail. IMPRESSION: Extensive degenerative changes throughout the cervical spine which are presumed to be chronic. There does appear to be loss of vertebral body height at C6 as suggested on CT from September 2016. POS: [facility]
== END 2017-04-09 11:09 | disposition home or self-care (01) ==
LOC: MADRAD 11:08
PROVIDERS: ATTEND Neurological Surgery
DX: M47.22 Other spondylosis with radiculopathy, cervical region (principal)
CPT/HCPCS: 72052

== ENCOUNTER 2017-04-14 14:20 | Outpatient (CLI) | payer MEDICARE ==
[2017-04-14 14:58] LABS: #Eosinphils 0.1 thou/uL (0.0-0.7); #Lymphocytes 0.6 thou/uL (1.20-3.40); #Monocytes 0.6 thou/uL (0.11-0.59); #Neutrophils 5.2 thou/uL (1.40-6.50); %Basophils 0.5 % (0.0-1.0); %Lymphocytes 8.7 % (21.0-51.0); %Monocytes 9.8 % (0.0-10.0); Hemoglobin 13.3 g/dL (14.0-18.0); Mean Corpuscular HGB CONC 32.6 g/dL (32.0-36.0); Mean Corpuscular Hemoglobin 31.5 pg (27.0-31.0); Mean Corpuscular Volume 96.4 fl (80.0-94.0); Mean Platelet Volume 10.9 fL (7.4-10.4); Platelet Count 144 thou/uL (130-400); Red Blood Cell (RBC) Count 4.21 mill/uL (4.70-6.10); White Blood Cell (WBC) Count 6.5 thou/uL (4.8-10.8)
[2017-04-14 14:59] LABS: Bilirubin Negative (Negative); Blood, Urine Small (Negative); Clarity Hazy (Clear); Glucose, Urine (Dipstick) Negative (Negative); Leukocyte Large (Negative); Nitrite Negative (Negative); Protein, Urine (Dipstick) Negative (Neg-Trace); Urobilinogen 0.2 mg/dL (0.2-1.0)
[2017-04-14 15:00] LABS: Bacteria/HPF Rare-Few HPF (None Seen); WBC/HPF 21-50 HPF (0-3)
[2017-04-14 15:03] LABS: INR-International Normal Ratio 2.7; PTT 52.4 SEC (22.9-36.1); Prothrombin Time 28.3 SEC (12.0-14.7)
[2017-04-14 15:13] LABS: ALT (SGPT) 22 U/L (8-55); AST (SGOT) 38 U/L (5-34); Albumin 3.8 g/dL (3.4-4.8); Alkaline Phosphatase 120 U/L (40-150); Anion Gap 14 mmol/L (10-20); BUN (Urea Nitrogen) 39 mg/dL (8.4-25.7); Bilirubin, Total 0.4 mg/dL (0.2-1.2); Calc. Creatinine Clearance 0 mL/min (70-130); Calcium 8.7 mg/dL (7.8-10.44); Carbon Dioxide 23 mmol/L (23-31); Chloride 109 mmol/L (98-107); Estimated GFR-MDRD 27; Globulin 2.9 g/dL (2.4-3.5); Glucose 90 mg/dL (83-110); Potassium 4.9 mmol/L (3.5-5.1); Protein, Total 6.7 g/dL (5.8-8.1); Sodium 141 mmol/L (136-145)
--- NOTE | 2017-04-14 15:46 | RAD ---
PA AND LATERAL VIEWS OF THE CHEST 04/14/17 HISTORY: Preoperative evaluation. FINDINGS: There are changes of median sternotomy. The heart size is borderline. The aorta is tortuous. The grover gs are well expanded without confluent areas of consolidation, pneumothoraces, jolly pulmonary edema or pleural effusions. There are degenerative changes in the spine. IMPRESSION: No acute process. POS: [facility]
== END 2017-04-14 14:21 | disposition home or self-care (01) ==
LOC: MADLABBHPM 14:20
PROVIDERS: ATTEND Family Medicine
DX: Z01.818 Encounter for other preprocedural examination (principal); N39.0 Urinary tract infection, site not specified
CPT/HCPCS: 36415; 71020; 80053; 81001; 85025; 85610; 85730; 87077; 87086; 87186

== ENCOUNTER 2017-04-22 08:52 | Outpatient (CLI) | payer MEDICARE | END 2017-04-22 08:53 | disposition home or self-care (01) | LOC: MADLABBHPM 08:52 | PROVIDERS: ATTEND Family Medicine | DX: Z01.818 Encounter for other preprocedural examination (principal) | CPT/HCPCS: 87077; 87086; 87186 ==

== ENCOUNTER 2017-05-06 13:27 | Outpatient (CLI) | payer MEDICARE ==
[2017-05-06 13:49] LABS: INR-International Normal Ratio 1.6; PTT 40.9 SEC (22.9-36.1); Prothrombin Time 19.3 SEC (12.0-14.7)
== END 2017-05-06 13:28 | disposition home or self-care (01) ==
LOC: MADLAB 13:27
PROVIDERS: ATTEND Neurological Surgery
DX: Z01.812 Encounter for preprocedural laboratory examination (principal); M47.12 Other spondylosis with myelopathy, cervical region
CPT/HCPCS: 36415; 85610; 85730

== ENCOUNTER 2017-06-02 14:20 | Outpatient (CLI) | payer MEDICARE ==
[2017-06-02 14:51] LABS: INR-International Normal Ratio 1.3; Prothrombin Time 16.7 SEC (12.0-14.7)
== END 2017-06-02 14:21 | disposition home or self-care (01) ==
LOC: MADLABBHPM 14:20
PROVIDERS: ATTEND Family Medicine
DX: Z51.81 Encounter for therapeutic drug level monitoring (principal); Z79.01 Long term (current) use of anticoagulants
CPT/HCPCS: 36415; 85610

== ENCOUNTER 2017-06-10 14:04 | Outpatient (CLI) | payer MEDICARE ==
[2017-06-10 14:33] LABS: INR-International Normal Ratio 2.4; Prothrombin Time 26.8 SEC (12.0-14.7)
== END 2017-06-10 14:05 | disposition home or self-care (01) ==
LOC: MADLABBHPM 14:04
PROVIDERS: ATTEND Family Medicine
DX: Z51.81 Encounter for therapeutic drug level monitoring (principal); Z79.01 Long term (current) use of anticoagulants
CPT/HCPCS: 36415; 85610

== ENCOUNTER 2017-06-28 09:36 | Outpatient (CLI) | payer MEDICARE ==
[2017-06-28 10:02] LABS: INR-International Normal Ratio 2.6
== END 2017-06-28 09:37 | disposition home or self-care (01) ==
LOC: MADLABBHPM 09:36
PROVIDERS: ATTEND Family Medicine
DX: Z51.81 Encounter for therapeutic drug level monitoring (principal); I48.2 Chronic atrial fibrillation; Z79.01 Long term (current) use of anticoagulants
CPT/HCPCS: 36415; 85610

== ENCOUNTER 2017-06-29 10:23 | Outpatient (CLI) | payer MEDICARE ==
--- NOTE | 2017-06-29 12:26 | RAD ---
CERVICAL SPINE THREE VIEWS: HISTORY: Neck surgery. Neck pain. COMPARISON: 04/09/2017 FINDINGS: Anterior fixation plate and screws are now in place at the C4-C5 level. Metallic markers associated with interbody fusion material are within the confines of the disk space at the postoperative level . Prominent osteophytosis is again demonstrated. Vertebral body heights are maintained. No acute fracture or dislocation is apparent. IMPRESSION: Interval anterior operative fusion of the upper cervical spine. POS: [facility]
== END 2017-06-29 10:24 | disposition home or self-care (01) ==
LOC: MADRAD 10:23
PROVIDERS: ATTEND Neurological Surgery
DX: M54.12 Radiculopathy, cervical region (principal); Z98.1 Arthrodesis status
CPT/HCPCS: 72040

== ENCOUNTER 2017-08-02 08:58 | Outpatient (CLI) | payer MEDICARE ==
[2017-08-02 10:33] LABS: INR-International Normal Ratio 2.3; Prothrombin Time 25.9 SEC (12.0-14.7)
== END 2017-08-02 08:59 | disposition home or self-care (01) ==
LOC: MADLABBHPM 08:58
PROVIDERS: ATTEND Family Medicine
DX: Z51.81 Encounter for therapeutic drug level monitoring (principal); I48.2 Chronic atrial fibrillation; Z79.01 Long term (current) use of anticoagulants
CPT/HCPCS: 36415; 85610

== ENCOUNTER 2017-09-01 13:05 | Outpatient (CLI) | payer MEDICARE ==
[2017-09-01 13:50] LABS: INR-International Normal Ratio 1.9; Prothrombin Time 22.3 SEC (12.0-14.7)
== END 2017-09-01 13:06 | disposition home or self-care (01) ==
LOC: MADLABBHPM 13:05
PROVIDERS: ATTEND Family Medicine
DX: Z51.81 Encounter for therapeutic drug level monitoring (principal); I48.2 Chronic atrial fibrillation; Z79.01 Long term (current) use of anticoagulants
CPT/HCPCS: 36415; 85610

== ENCOUNTER 2017-09-20 08:07 | Outpatient (CLI) | payer MEDICARE ==
[2017-09-20 09:09] LABS: Prothrombin Time 23.7 SEC (12.0-14.7)
== END 2017-09-20 08:08 | disposition home or self-care (01) ==
LOC: MADLAB 08:07
PROVIDERS: ATTEND Family Medicine
DX: Z51.81 Encounter for therapeutic drug level monitoring (principal); I48.2 Chronic atrial fibrillation; Z79.01 Long term (current) use of anticoagulants
CPT/HCPCS: 36415; 85610

== ENCOUNTER 2017-10-25 08:20 | Outpatient (CLI) | payer MEDICARE ==
[2017-10-25 12:14] LABS: INR-International Normal Ratio 2.1; Prothrombin Time 23.9 SEC (12.0-14.7)
== END 2017-10-25 08:21 | disposition home or self-care (01) ==
LOC: MADLABBHPM 08:20
PROVIDERS: ATTEND Family Medicine
DX: Z51.81 Encounter for therapeutic drug level monitoring (principal); I48.2 Chronic atrial fibrillation; Z79.01 Long term (current) use of anticoagulants
CPT/HCPCS: 36415; 85610

== ENCOUNTER 2017-11-06 14:08 | Emergency (ER) | payer MEDICARE ==
[2017-11-06 15:05] LABS: #Lymphocytes 0.3 thou/uL (1.20-3.40); #Monocytes 0.3 thou/uL (0.11-0.59); #Neutrophils 7.2 thou/uL (1.40-6.50); %Basophils 0.3 % (0.0-1.0); %Eosinophils 0.1 % (0.0-10.0); %Lymphocytes 4.2 % (21.0-51.0); %Monocytes 3.3 % (0.0-10.0); %Neutrophils 92.1 % (42.0-75.0); Hemoglobin 12.5 g/dL (14.0-18.0); Mean Corpuscular HGB CONC 32.3 g/dL (32.0-36.0); Mean Corpuscular Hemoglobin 32.3 pg (27.0-31.0); Mean Platelet Volume 8.6 fL (7.4-10.4); Platelet Count 133 thou/uL (130-400); RBC Distribution Width 12.4 % (11.5-14.5); Red Blood Cell (RBC) Count 3.87 mill/uL (4.70-6.10); White Blood Cell (WBC) Count 7.8 thou/uL (4.8-10.8)
[2017-11-06 15:15] LABS: ALT (SGPT) 13 U/L (8-55); AST (SGOT) 29 U/L (5-34); Albumin 3.7 g/dL (3.4-4.8); Alkaline Phosphatase 97 U/L (40-150); Anion Gap 16 mmol/L (10-20); BUN (Urea Nitrogen) 28 mg/dL (8.4-25.7); Bilirubin, Total 0.5 mg/dL (0.2-1.2); Calc. Creatinine Clearance 0 mL/min (70-130); Calcium 8.6 mg/dL (7.8-10.44); Carbon Dioxide 20 mmol/L (23-31); Chloride 107 mmol/L (98-107); Estimated GFR-MDRD 39; Globulin 2.8 g/dL (2.4-3.5); Glucose 249 mg/dL (83-110); Potassium 4.7 mmol/L (3.5-5.1); Protein, Total 6.5 g/dL (5.8-8.1); Sodium 138 mmol/L (136-145)
--- NOTE | 2017-11-06 15:51 | RAD ---
AP PELVIS ONE VIEW: 11/06/17 HISTORY: 87-year-old male with pelvic pain. There is a left ureteral stent in place. There is deformity of the right superior and inferior ischio pubic rami evidence for old fractures. Arthrosis changes are noted of both hip joints. No evidence fo r an overt acute pelvic fracture. Bi-iliac endostents are noted. Surgical clips overlie the right tayo in. IMPRESSION: Old right superior and inferior ischiopubic rami fractures. No evidence for an overt acute fracture. Bilateral hip joint arthrosis. POS: [facility]
--- NOTE | 2017-11-06 15:51 | RAD ---
RIGHT HIP 2 VIEWS: HISTORY: Deformity of the right superior and inferior ischiopubic rami. Marked right hip joint arthrosis. Ochoa rgical clips overlie the right hip and groin. Left-sided ureteral stent. No acute hip fracture. IMPRESSION: No acute hip fracture. Old healed right pelvic fractures. Right hip joint arthrosis. POS: [facility]
[2017-11-06] MEDS ORDERED: Ketorolac Tromethamine 30 MG/ML VIAL ONE (16:03)
== END 2017-11-06 16:28 | disposition home or self-care (01) ==
LOC: MADERS 14:08
DX: M25.551 Pain in right hip (principal); M19.90 Unspecified osteoarthritis, unspecified site; I48.91 Unspecified atrial fibrillation; I10 Essential (primary) hypertension; Z85.528 Personal history of other malignant neoplasm of kidney; Z85.46 Personal history of malignant neoplasm of prostate
CPT/HCPCS: 36415; 72170; 80053; 85025; 85652; 96372; J1885

== ENCOUNTER 2017-11-22 08:21 | Outpatient (CLI) | payer MEDICARE ==
[2017-11-22 08:52] LABS: INR-International Normal Ratio 2.7; Prothrombin Time 30.1 SEC (12.0-14.7)
== END 2017-11-22 08:22 | disposition home or self-care (01) ==
LOC: MADLAB 08:21
PROVIDERS: ATTEND Family Medicine
DX: Z51.81 Encounter for therapeutic drug level monitoring (principal); I48.2 Chronic atrial fibrillation; Z79.01 Long term (current) use of anticoagulants
CPT/HCPCS: 36415; 85610

== ENCOUNTER 2017-12-20 10:29 | Outpatient (CLI) | payer MEDICARE ==
[2017-12-20 11:31] LABS: INR-International Normal Ratio 1.9; Prothrombin Time 21.9 SEC (12.0-14.7)
== END 2017-12-20 10:30 | disposition home or self-care (01) ==
LOC: MADLABBHPM 10:29
PROVIDERS: ATTEND Family Medicine
DX: Z51.81 Encounter for therapeutic drug level monitoring (principal); Z79.01 Long term (current) use of anticoagulants
CPT/HCPCS: 36415; 85610

== ENCOUNTER 2018-01-17 13:13 | Outpatient (CLI) | payer MEDICARE ==
[2018-01-17 13:33] LABS: INR-International Normal Ratio 1.7; Prothrombin Time 20.4 SEC (12.0-14.7)
== END 2018-01-17 13:14 | disposition home or self-care (01) ==
LOC: MADLABBHPM 13:13
PROVIDERS: ATTEND Family Medicine
DX: Z51.81 Encounter for therapeutic drug level monitoring (principal); Z79.01 Long term (current) use of anticoagulants
CPT/HCPCS: 36415; 85610

== ENCOUNTER 2018-02-16 08:06 | Outpatient (CLI) | payer MEDICARE ==
[2018-02-16 08:45] LABS: INR-International Normal Ratio 1.4
== END 2018-02-16 08:07 | disposition home or self-care (01) ==
LOC: MADLAB 08:06
PROVIDERS: ATTEND Family Medicine
DX: Z51.81 Encounter for therapeutic drug level monitoring (principal); Z79.01 Long term (current) use of anticoagulants
CPT/HCPCS: 36415; 85610

== ENCOUNTER 2018-02-22 10:53 | Outpatient (CLI) | payer MEDICARE ==
[2018-02-22 11:07] LABS: INR-International Normal Ratio 1.7; Prothrombin Time 20.5 SEC (12.0-14.7)
== END 2018-02-22 10:54 | disposition home or self-care (01) ==
LOC: MADLABBHPM 10:53
PROVIDERS: ATTEND Family Medicine
DX: Z51.81 Encounter for therapeutic drug level monitoring (principal); Z79.01 Long term (current) use of anticoagulants
CPT/HCPCS: 36415; 85610

== ENCOUNTER 2018-03-01 09:02 | Outpatient (CLI) | payer MEDICARE ==
[2018-03-01 09:23] LABS: INR-International Normal Ratio 1.9; Prothrombin Time 22.2 SEC (12.0-14.7)
== END 2018-03-01 09:03 | disposition home or self-care (01) ==
LOC: MADLAB 09:02
PROVIDERS: ATTEND Family Medicine
DX: Z51.81 Encounter for therapeutic drug level monitoring (principal); Z79.01 Long term (current) use of anticoagulants
CPT/HCPCS: 36415; 85610

== ENCOUNTER 2018-03-08 08:07 | Outpatient (CLI) | payer MEDICARE ==
[2018-03-08 09:14] LABS: INR-International Normal Ratio 2.3
== END 2018-03-08 08:08 | disposition home or self-care (01) ==
LOC: MADLABBHPM 08:07
PROVIDERS: ATTEND Family Medicine
DX: Z51.81 Encounter for therapeutic drug level monitoring (principal); Z79.01 Long term (current) use of anticoagulants
CPT/HCPCS: 36415; 85610

== ENCOUNTER 2018-04-11 08:24 | Outpatient (CLI) | payer MEDICARE ==
[2018-04-11 08:50] LABS: INR-International Normal Ratio 1.7; Prothrombin Time 19.8 SEC (12.0-14.7)
== END 2018-04-11 08:25 | disposition home or self-care (01) ==
LOC: MADLABBHPM 08:24
PROVIDERS: ATTEND Family Medicine
DX: Z51.81 Encounter for therapeutic drug level monitoring (principal); Z79.01 Long term (current) use of anticoagulants
CPT/HCPCS: 36415; 85610

== ENCOUNTER 2018-04-18 08:01 | Outpatient (CLI) | payer MEDICARE ==
[2018-04-18 08:31] LABS: INR-International Normal Ratio 1.9; Prothrombin Time 22.2 SEC (12.0-14.7)
== END 2018-04-18 08:02 | disposition home or self-care (01) ==
LOC: MADLABBHPM 08:01
PROVIDERS: ATTEND Family Medicine
DX: Z51.81 Encounter for therapeutic drug level monitoring (principal); Z79.01 Long term (current) use of anticoagulants
CPT/HCPCS: 36415; 85610

== ENCOUNTER 2018-05-16 08:49 | Outpatient (CLI) | payer MEDICARE ==
[2018-05-16 09:10] LABS: Prothrombin Time 22.3 SEC (12.0-14.7)
== END 2018-05-16 08:50 | disposition home or self-care (01) ==
LOC: MADLAB 08:49
PROVIDERS: ATTEND Family Medicine
DX: Z51.81 Encounter for therapeutic drug level monitoring (principal); Z79.01 Long term (current) use of anticoagulants
CPT/HCPCS: 36415; 85610

== ENCOUNTER 2018-06-13 10:27 | Outpatient (CLI) | payer MEDICARE ==
[2018-06-13 10:46] LABS: INR-International Normal Ratio 1.7
== END 2018-06-13 10:28 | disposition home or self-care (01) ==
LOC: MADLABBHPM 10:27
PROVIDERS: ATTEND Family Medicine
DX: Z51.81 Encounter for therapeutic drug level monitoring (principal); Z79.01 Long term (current) use of anticoagulants
CPT/HCPCS: 36415; 85610

== ENCOUNTER 2018-06-27 08:26 | Outpatient (CLI) | payer MEDICARE ==
[2018-06-27 09:07] LABS: Prothrombin Time 22.7 SEC (12.0-14.7)
== END 2018-06-27 08:27 | disposition home or self-care (01) ==
LOC: MADLABBHPM 08:26
PROVIDERS: ATTEND Family Medicine
DX: Z51.81 Encounter for therapeutic drug level monitoring (principal); Z79.01 Long term (current) use of anticoagulants
CPT/HCPCS: 36415; 85610

== ENCOUNTER 2018-07-25 08:25 | Outpatient (CLI) | payer MEDICARE ==
[2018-07-25 08:55] LABS: INR-International Normal Ratio 2.5
[2018-07-25 10:16] LABS: Prothrombin Time 27.4 SEC (12.0-14.7)
== END 2018-07-25 08:26 | disposition home or self-care (01) ==
LOC: MADLABBHPM 08:25
PROVIDERS: ATTEND Family Medicine
DX: Z51.81 Encounter for therapeutic drug level monitoring (principal); Z79.01 Long term (current) use of anticoagulants
CPT/HCPCS: 36415; 85610

== ENCOUNTER 2018-08-22 08:17 | Outpatient (CLI) | payer MEDICARE ==
[2018-08-22 09:32] LABS: INR-International Normal Ratio 2.4; Prothrombin Time 26.2 SEC (12.0-14.7)
== END 2018-08-22 08:18 | disposition home or self-care (01) ==
LOC: MADLABBHPM 08:17
PROVIDERS: ATTEND Family Medicine
DX: Z51.81 Encounter for therapeutic drug level monitoring (principal); Z79.01 Long term (current) use of anticoagulants
CPT/HCPCS: 36415; 85610

== ENCOUNTER 2018-09-22 08:21 | Outpatient (CLI) | payer MEDICARE ==
[2018-09-22 08:43] LABS: INR-International Normal Ratio 2.3; Prothrombin Time 25.6 SEC (12.0-14.7)
== END 2018-09-22 08:22 | disposition home or self-care (01) ==
LOC: MADLABBHPM 08:21
PROVIDERS: ATTEND Family Medicine
DX: Z51.81 Encounter for therapeutic drug level monitoring (principal); Z79.01 Long term (current) use of anticoagulants
CPT/HCPCS: 36415; 85610

== ENCOUNTER 2018-10-24 09:08 | Outpatient (CLI) | payer MEDICARE ==
[2018-10-24 09:47] LABS: INR-International Normal Ratio 2.7
== END 2018-10-24 09:09 | disposition home or self-care (01) ==
LOC: MADLABBHPM 09:08
PROVIDERS: ATTEND Family Medicine
DX: Z51.81 Encounter for therapeutic drug level monitoring (principal); Z79.01 Long term (current) use of anticoagulants
CPT/HCPCS: 36415; 85610

== ENCOUNTER 2019-01-03 09:17 | Outpatient (CLI) | payer MEDICARE ==
[2019-01-03 10:07] LABS: Prothrombin Time 22.8 SEC (12.0-14.7)
== END 2019-01-03 09:18 | disposition home or self-care (01) ==
LOC: MADLABBHPM 09:17
PROVIDERS: ATTEND Family Medicine
DX: Z51.81 Encounter for therapeutic drug level monitoring (principal); Z79.01 Long term (current) use of anticoagulants
CPT/HCPCS: 36415; 85610

== ENCOUNTER 2019-01-30 10:40 | Outpatient (CLI) | payer MEDICARE ==
[2019-01-30 10:59] LABS: INR-International Normal Ratio 1.8; Prothrombin Time 20.9 SEC (12.0-14.7)
== END 2019-01-30 10:41 | disposition home or self-care (01) ==
LOC: MADLABBHPM 10:40
PROVIDERS: ATTEND Family Medicine
DX: Z51.81 Encounter for therapeutic drug level monitoring (principal); Z79.01 Long term (current) use of anticoagulants
CPT/HCPCS: 36415; 85610

== ENCOUNTER 2019-03-27 08:28 | Outpatient (CLI) | payer MEDICARE ==
[2019-03-27 09:56] LABS: INR-International Normal Ratio 1.4
== END 2019-03-27 08:29 | disposition home or self-care (01) ==
LOC: MADLABBHPM 08:28
PROVIDERS: ATTEND Family Medicine
DX: Z51.81 Encounter for therapeutic drug level monitoring (principal); Z79.01 Long term (current) use of anticoagulants
CPT/HCPCS: 36415; 85610

== ENCOUNTER 2019-03-29 08:29 | Outpatient (CLI) | payer MEDICARE ==
[2019-03-29 09:21] LABS: INR-International Normal Ratio 1.5; Prothrombin Time 17.9 SEC (12.0-14.7)
== END 2019-03-29 08:30 | disposition home or self-care (01) ==
LOC: MADLABBHPM 08:29
PROVIDERS: ATTEND Family Medicine
DX: Z51.81 Encounter for therapeutic drug level monitoring (principal); Z79.01 Long term (current) use of anticoagulants
CPT/HCPCS: 36415; 85610

== ENCOUNTER 2019-04-05 08:56 | Outpatient (CLI) | payer MEDICARE ==
[2019-04-05 10:01] LABS: INR-International Normal Ratio 1.8; Prothrombin Time 20.7 SEC (12.0-14.7)
== END 2019-04-05 08:57 | disposition home or self-care (01) ==
LOC: MADLABBHPM 08:56
PROVIDERS: ATTEND Family Medicine
DX: Z51.81 Encounter for therapeutic drug level monitoring (principal); Z79.01 Long term (current) use of anticoagulants
CPT/HCPCS: 36415; 85610

== ENCOUNTER 2019-04-24 08:07 | Outpatient (CLI) | payer MEDICARE ==
[2019-04-24 08:45] LABS: INR-International Normal Ratio 1.8; Prothrombin Time 21.1 SEC (12.0-14.7)
== END 2019-04-24 08:08 | disposition home or self-care (01) ==
LOC: MADLABBHPM 08:07
PROVIDERS: ATTEND Family Medicine
DX: Z51.81 Encounter for therapeutic drug level monitoring (principal); Z79.01 Long term (current) use of anticoagulants
CPT/HCPCS: 36415; 85610

== ENCOUNTER 2019-05-29 08:52 | Outpatient (CLI) | payer MEDICARE ==
[2019-05-29 09:30] LABS: Prothrombin Time 22.7 SEC (12.0-14.7)
== END 2019-05-29 08:53 | disposition home or self-care (01) ==
LOC: MADLABBHPM 08:52
PROVIDERS: ATTEND Family Medicine
DX: Z51.81 Encounter for therapeutic drug level monitoring (principal); Z79.01 Long term (current) use of anticoagulants
CPT/HCPCS: 36415; 85610

== ENCOUNTER 2019-06-07 10:43 | Emergency (ER) | payer MEDICARE ==
[2019-06-07 11:05] LABS: INR-International Normal Ratio 2.3
[2019-06-07 11:06] LABS: PTT 57.7 SEC (22.9-36.1)
[2019-06-07 11:15] LABS: ALT (SGPT) 10 U/L (8-55); AST (SGOT) 26 U/L (5-34); Albumin 4.1 g/dL (3.4-4.8); Alkaline Phosphatase 82 U/L (40-150); Anion Gap 15 mmol/L (10-20); BUN (Urea Nitrogen) 24 mg/dL (8.4-25.7); Bilirubin, Total 0.6 mg/dL (0.2-1.2); Calc. Creatinine Clearance 0 mL/min (70-130); Calcium 8.7 mg/dL (7.8-10.44); Carbon Dioxide 23 mmol/L (23-31); Chloride 106 mmol/L (98-107); Estimated GFR-MDRD 38; Globulin 2.6 g/dL (2.4-3.5); Glucose 104 mg/dL (83-110); Potassium 4.4 mmol/L (3.5-5.1); Protein, Total 6.7 g/dL (5.8-8.1); Sodium 140 mmol/L (136-145)
--- NOTE | 2019-06-07 11:23 | RAD ---
EXAM: 4 views of the right knee HISTORY: Knee pain COMPARISON: None FINDINGS: No knee effusion is seen. There is no evidence of acute fracture or dislocation. No signifi cant degenerative changes are seen. Severe prepatellar soft tissue swelling is present. Surgical clips are seen along the medial aspect of the knee. IMPRESSION: No evidence of acute osseous abnormality.
--- NOTE | 2019-06-07 11:38 | CT ---
CT BRAIN WITHOUT CONTRAST: Date: 06/07/19 HISTORY: Fall without loss of consciousness. Patient on Coumadin. Comparison made with exam of 09/12/16. FINDINGS: Changes of cortical atrophy and chronic small vessel ischemic disease again seen. The ventricular siz e is appropriate and the basilar cisterns are patent. No evidence of acute infarct, hemorrhage, midline shift, or abnormal extra-axial fluid collections ar e seen. The bony calvarium is intact. The visualized paranasal sinuses and mastoid air cells are well aerated. IMPRESSION: No CT evidence of acute intracranial process. POS: [facility]
[2019-06-07 11:39] LABS: Hemoglobin 13.1 g/dL (14.0-18.0); Lymphocytes 9 % (21-51); MDiff Complete? YES; Mean Corpuscular HGB CONC 33.7 g/dL (32.0-36.0); Mean Corpuscular Hemoglobin 31.3 pg (27.0-31.0); Monocytes 14 % (0-10); Neutrophil 70 % (42-75); Platelet Count 103 thou/uL (130-400); Platelet Morphology Comment Appears Decreased; RBC Distribution Width 12.4 % (11.5-14.5); Reactive Lymphocytes 7 % (0-10)
== END 2019-06-07 12:00 | disposition short-term general hospital (02) ==
LOC: MADERS 10:43
DX: S51.811A Laceration without foreign body of right forearm, initial encounter (principal); S80.01XA Contusion of right knee, initial encounter; S00.03XA Contusion of scalp, initial encounter; I10 Essential (primary) hypertension; I48.91 Unspecified atrial fibrillation; I71.9 Aortic aneurysm of unspecified site, without rupture; Z79.01 Long term (current) use of anticoagulants; W18.30XA Fall on same level, unspecified, initial encounter; Z79.899 Other long term (current) drug therapy
CPT/HCPCS: 70450; 73564; 80053; 83880; 84484; 85025; 85610; 85730; 93005; 94760; 99285; G0390

== ENCOUNTER 2019-06-09 13:49 | Inpatient (IN) | payer MEDICARE ==
[2019-06-09] MEDS ORDERED: Acetaminophen/Codeine 30-300mg Tablet PO PRN (16:56)
[2019-06-09] MEDS ORDERED: Furosemide 40 MG TAB PO PRN (17:24)
[2019-06-09] MEDS ORDERED: Acetaminophen 500 MG TAB PO PRN (17:28)
[2019-06-09] MEDS ORDERED: Cyclobenzaprine 10 MG TAB PO PRN (17:29)
[2019-06-09] MEDS ORDERED: Furosemide 20 MG TAB PO PRN (19:21)
[2019-06-09] MEDS: Metoprolol Tartrate 25 MG TAB PO SCH (20:20)
[2019-06-09] MEDS: Tamsulosin HCl 0.4 MG CAP PO SCH (20:20)
[2019-06-09] MEDS ORDERED: Metoprolol Tartrate 50 MG TAB PO SCH (21:00)
--- NOTE | 2019-06-10 01:35 | HP ---
REASON FOR ADMISSION: Skilled rehab after recent hospitalization secondary to fall. HISTORY OF THE PRESENT ILLNESS AND HOSPITAL COURSE: Mr. Hardy is an 89-year- old male with history of chronic atrial fibrillation, on current long- term use of anticoagulant, hypertension, CAD, chronic anemia The patient is anticoagulated with Coumadin for a long time. While at home on 06/07/2019, the patient fell while he was in a backyard using his rolling walker. The patient reports that there was a raised step that he did not realize and tripped over. He fell on the ground with his right knee and sustained a huge hematoma on the right anterior knee. He also sustained right-sided facial contusion. The patient was sent to [facility] ER for further evaluation. His INR at that time was therapeutic at 2.3. He had CT scan of the brain, which was unremarkable. The patient denies loss of consciousness, chest pain, vomiting, dizziness. He denies syncopal episodes or events or symptoms prior to the fall or after. The patient was initially observed in the ICU and serial examinations including neurological exams were done. Serial CT of the brain were unremarkable. The patient's Coumadin was withheld since admission. His latest INR was reported on 06/09/2019, it remains therapeutic at 2.1 prior to discharge. The patient was subsequently transferred to [facility] on 06/09/2019 for skilled rehab. When evaluated on admission, the patient reports that he is still generally weak and unable to stand up on his own nor tolerate prolonged standing position, because of his right knee tries to give in. He does not report significant pain while at rest, but reports pain more in the standing position. When evaluated, the patient's daughter and son-in-law were in the room. The patient was eating his dinner. He was comfortable in the chair. He reports no significant chest pain, shortness of breath, pain with breathing. No new issues at this time. PAST MEDICAL HISTORY: 1. Hypertension. 2. Chronic atrial fibrillation, on long-term anticoagulant use with Coumadin. 3. Chronic anemia 4. BPH. 5. History of lumbar spondylosis. 6. History of prostate cancer. 7. CAD with history of bypass graft. 8. Gastroesophageal reflux. PAST SURGICAL HISTORY: 1. Lumbar surgery in [place], [place] in 1991. 2. Cardiac bypass in 2013. 3. Knee surgery in 1960s. 4. Kidney stone with radiation, prostate of prostate in 2004. 5. S/P Cervical discectomy. FAMILY HISTORY: History of strokes and Parkinson disease. SOCIAL HISTORY: The patient is a former tobacco user. No alcohol nor illicit drug use. MEDICATIONS: 1. Amiodarone 200 mg p.o. daily. 2. Amlodipine 10 mg p.o. daily. 3. Warfarin 4 mg p.o. daily. 4. Metoprolol 25 mg p.o. b.i.d. 5. Tamsulosin 0.4 mg p.o. daily. 6. Furosemide 40 mg p.o. daily p.r.n. 7. Aspirin 81 mg p.o. daily p.r.n. 8. Cyclobenzaprine 5 mg p.o. t.i.d. p.r.n. 9. Tylenol 1000 mg p.o. q.6 p.r.n. 10. Tramadol 50 mg p.o. q.6 hours p.r.n. ALLERGIES: MORPHINE. PAST SURGICAL HISTORY: 1. C-spine and L-spine surgery. 2. Kidney surgery. 3. Abdominal aortic aneurysm repair surgery. REVIEW OF SYSTEMS: GENERAL: Denies fever and chills, loss of appetite. Reports general weakness and fatigue. HEENT: No acute visual changes or hearing changes. RESPIRATORY: No shortness of breath, pain with breathing, sputum production, bloody sputum, or chronic cough. CARDIAC: Denies chest pain, dyspnea on exertion, leg edema, paroxysmal nocturnal dyspnea. GI: No nausea, vomiting, abdominal pain, diarrhea, or constipation. No rectal bleeding, melena, hematochezia, hematochezia, hematemesis. GENITOURINARY: No dysuria, gross hematuria, frequency, urgency, or incontinence. MUSCULOSKELETAL: Reports joint pains, swelling per HPI. ENDOCRINE: No heat or cold intolerance. No significant weight loss. PSYCHIATRIC: Denies depression, anxiety, hallucinations or insomnia. SKIN: No rashes. No jaundice. No pruritus. PHYSICAL EXAMINATION: VITAL SIGNS: Blood pressure 128/76, temp 97.1, pulse 98, irregular, respiration 14, O2 sats 98%, weight 210 pounds and 8 ounces, height 5 feet 10 inches. GENERAL: The patient is awake, alert, oriented x3, comfortable on exam. No signs of agony, no acute distress. HEENT: Normocephalic, atraumatic. PERRL. Intact EOM. Anicteric sclerae. Oral mucosa is moist. NECK: Supple. No LAD. No JVD. CHEST: Normal excursion. Clear to auscultation bilaterally. CARDIAC: Rate controlled, irregular. Normal S1 and S2. ABDOMEN: Obese, soft. Normoactive bowel sounds. Nondistended, nontender. No rebound or guarding. Negative CVA tenderness bilaterally. EXTREMITIES: Huge hematoma noted in the right anterior knee associated with swelling, covered with dry clean dressing. Tender to touch. SKIN: Mild hematoma on the right cheek. Almost fading in appearance. LABORATORY DATA: Recent blood work, WBC 6.7, hemoglobin 13.6, hematocrit 41.2, platelets 118. PT/INR, PT 23.5, INR 2.1. APTT 50.6 on 06/09/2019. Sodium 137, potassium 4.5, BUN 24, creatinine 1.48. Liver function tests within normal limits. IMAGING: Right knee x-ray showed no evidence of acute osseous abnormality. There is a severe prepatellar soft tissue swelling. CT of the scan x2 showed no acute intracranial process. ASSESSMENT: 1. Status post ground level fall. 2. Right knee contusion. 3. Right-sided facial contusion. 4. Chronic atrial fibrillation, long-term history of Coumadin use with therapeutic INR. 5. Hypertension. 6. Benign prostatic hypertrophy. 7. Unsteady gait. 8. Deconditioning. 9. History of previous falls. The patient was admitted to [facility] for purposes of rehab. We will refer to PT and OT. Continue current medications as modified per list. We will continue to hold off Coumadin at this point. We will repeat INR on Wednesday. Gastrointestinal with proton pump inhibitor. Deep venous thrombosis prophylaxis not indicated. I had a lengthy discussion with patient in the presence of the family as represented by his daughter and son-in-law. We discussed the long-term use of anticoagulant and increased risk of falling. We discussed the risks and benefits with and without anticoagulant use. 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 I tried calling Dr. Palacios today, but could not be reached. I will try to call back Dr. Palacios on [place] and discuss the above. In the mean time , we will continue to hold off the patient's Coumadin and repeat lab work serially. CODE STATUS: The patient reports DNR in the presence of his family as represented by his daughter and son-in-law. Everybody was agreeable to the patient's wishes. ESTIMATED LENGTH OF STAY: 1 to 2 weeks. Job ID: [id number] [id number]
[2019-06-10] MEDS: Amiodarone 200 MG TAB PO SCH (08:42)
[2019-06-10] MEDS: Aspirin Chewable 81 MG TAB PO SCH (08:42)
[2019-06-10] MEDS: Metoprolol Tartrate 25 MG TAB PO SCH ×2 (08:42→20:13)
[2019-06-10] MEDS: Amlodipine 5 MG TAB PO SCH (08:42)
[2019-06-10] MEDS: Famotidine 20 MG TAB PO SCH (08:42)
[2019-06-10] MEDS ORDERED: Furosemide 40 MG TAB PO SCH (09:00)
[2019-06-10] MEDS: Tamsulosin HCl 0.4 MG CAP PO SCH (20:13)
[2019-06-11] MEDS: Amiodarone 200 MG TAB PO SCH (08:30)
[2019-06-11] MEDS: Famotidine 20 MG TAB PO SCH (08:30)
[2019-06-11] MEDS: Amlodipine 5 MG TAB PO SCH (08:30)
[2019-06-11] MEDS: Metoprolol Tartrate 25 MG TAB PO SCH ×2 (08:31→21:41)
[2019-06-11] MEDS: Aspirin Chewable 81 MG TAB PO SCH (08:31)
[2019-06-11] MEDS: Tamsulosin HCl 0.4 MG CAP PO SCH (21:41)
[2019-06-12] MEDS: traMADol HCl 50 MG TAB PO PRN (01:54)
[2019-06-12] MEDS: Amlodipine 5 MG TAB PO SCH (08:27)
[2019-06-12] MEDS: Metoprolol Tartrate 25 MG TAB PO SCH ×2 (08:27→20:46)
[2019-06-12] MEDS: Famotidine 20 MG TAB PO SCH (08:27)
[2019-06-12] MEDS: Aspirin Chewable 81 MG TAB PO SCH (08:27)
[2019-06-12] MEDS: Amiodarone 200 MG TAB PO SCH (08:27)
[2019-06-12] MEDS: Tamsulosin HCl 0.4 MG CAP PO SCH (20:46)
[2019-06-12] MEDS: Acetaminophen 500 MG TAB PO PRN (20:53)
[2019-06-13] MEDS: Famotidine 20 MG TAB PO SCH (09:08)
[2019-06-13] MEDS: Aspirin Chewable 81 MG TAB PO SCH (09:19)
[2019-06-13] MEDS: Amlodipine 5 MG TAB PO SCH (09:19)
[2019-06-13] MEDS: Metoprolol Tartrate 25 MG TAB PO SCH ×2 (09:20→20:11)
[2019-06-13] MEDS: Amiodarone 200 MG TAB PO SCH (09:20)
[2019-06-13] MEDS: Acetaminophen 500 MG TAB PO PRN (17:40)
[2019-06-13] MEDS: Tamsulosin HCl 0.4 MG CAP PO SCH (20:11)
[2019-06-13] MEDS: traMADol HCl 50 MG TAB PO PRN (21:55)
[2019-06-14] MEDS: Aspirin Chewable 81 MG TAB PO SCH (08:19)
[2019-06-14] MEDS: Famotidine 20 MG TAB PO SCH (08:19)
[2019-06-14] MEDS: Amlodipine 5 MG TAB PO SCH (08:20)
[2019-06-14] MEDS: Amiodarone 200 MG TAB PO SCH (08:20)
[2019-06-14] MEDS: Metoprolol Tartrate 25 MG TAB PO SCH ×2 (08:20→19:58)
[2019-06-14] MEDS: Triple Antibiotic Oint 1 GM Packet TOP PRN (14:16)
[2019-06-14] MEDS: Acetaminophen 500 MG TAB PO PRN (19:48)
[2019-06-14] MEDS: Tamsulosin HCl 0.4 MG CAP PO SCH (19:59)
[2019-06-15] MEDS: Amiodarone 200 MG TAB PO SCH (08:35)
[2019-06-15] MEDS: Metoprolol Tartrate 25 MG TAB PO SCH ×2 (08:35→20:14)
[2019-06-15] MEDS: Famotidine 20 MG TAB PO SCH (08:35)
[2019-06-15] MEDS: Aspirin Chewable 81 MG TAB PO SCH (08:35)
[2019-06-15] MEDS: Amlodipine 5 MG TAB PO SCH (08:35)
[2019-06-15] MEDS: Triple Antibiotic Oint 1 GM Packet TOP SCH (08:35)
[2019-06-15] MEDS: Tamsulosin HCl 0.4 MG CAP PO SCH (20:14)
[2019-06-16] MEDS: Amlodipine 5 MG TAB PO SCH (08:42)
[2019-06-16] MEDS: Amiodarone 200 MG TAB PO SCH (08:42)
[2019-06-16] MEDS: Aspirin Chewable 81 MG TAB PO SCH (08:42)
[2019-06-16] MEDS: Metoprolol Tartrate 25 MG TAB PO SCH ×2 (08:42→21:28)
[2019-06-16] MEDS: Famotidine 20 MG TAB PO SCH (08:43)
[2019-06-16] MEDS: Triple Antibiotic Oint 1 GM Packet TOP SCH (08:43)
[2019-06-16 15:15] LABS: Bilirubin Small (Negative); Blood, Urine Negative (Negative); Clarity Clear (Clear); Glucose, Urine (Dipstick) Negative (Negative); Leukocyte Negative (Negative); Nitrite Negative (Negative); Protein, Urine (Dipstick) 30 mg/dL (Neg-Trace)
[2019-06-16 15:25] LABS: Bacteria/HPF Rare-Few HPF (None Seen); RBC/HPF None Seen HPF (0-3); Squamous Epithelial 0-3 HPF (0-3); WBC/HPF 0-3 HPF (0-3)
[2019-06-16 15:27] LABS: Urine Culture Reflex No No
[2019-06-16] MEDS: Tamsulosin HCl 0.4 MG CAP PO SCH (21:28)
[2019-06-17] MEDS: Triple Antibiotic Oint 1 GM Packet TOP SCH (08:40)
[2019-06-17] MEDS: Metoprolol Tartrate 25 MG TAB PO SCH ×2 (08:40→20:55)
[2019-06-17] MEDS: Triple Antibiotic Oint 1 GM Packet TOP PRN (08:40)
[2019-06-17] MEDS: Aspirin Chewable 81 MG TAB PO SCH (08:40)
[2019-06-17] MEDS: Amlodipine 5 MG TAB PO SCH (08:40)
[2019-06-17] MEDS: Famotidine 20 MG TAB PO SCH (08:40)
[2019-06-17] MEDS: Amiodarone 200 MG TAB PO SCH (08:40)
[2019-06-17] MEDS: Tamsulosin HCl 0.4 MG CAP PO SCH (20:55)
[2019-06-18] MEDS: Amiodarone 200 MG TAB PO SCH (08:22)
[2019-06-18] MEDS: Aspirin Chewable 81 MG TAB PO SCH (08:22)
[2019-06-18] MEDS: Amlodipine 5 MG TAB PO SCH (08:22)
[2019-06-18] MEDS: Famotidine 20 MG TAB PO SCH (08:22)
[2019-06-18] MEDS: Triple Antibiotic Oint 1 GM Packet TOP SCH (08:22)
[2019-06-18] MEDS: Metoprolol Tartrate 25 MG TAB PO SCH ×2 (08:22→20:23)
[2019-06-18] MEDS: Triple Antibiotic Oint 1 GM Packet TOP PRN (08:23)
[2019-06-18] MEDS ORDERED: Sodium Chloride Irrig Solution 250 ML BOT ONE (12:52)
[2019-06-18] MEDS: Tamsulosin HCl 0.4 MG CAP PO SCH (20:23)
[2019-06-19] MEDS: Amlodipine 5 MG TAB PO SCH (08:16)
[2019-06-19] MEDS: Metoprolol Tartrate 25 MG TAB PO SCH ×2 (08:16→21:19)
[2019-06-19] MEDS: Triple Antibiotic Oint 1 GM Packet TOP SCH (08:16)
[2019-06-19] MEDS: Amiodarone 200 MG TAB PO SCH (08:16)
[2019-06-19] MEDS: Aspirin Chewable 81 MG TAB PO SCH (08:16)
[2019-06-19] MEDS: Famotidine 20 MG TAB PO SCH (08:19)
[2019-06-19] MEDS: Tamsulosin HCl 0.4 MG CAP PO SCH (21:19)
[2019-06-20] MEDS: Amlodipine 5 MG TAB PO SCH (08:26)
[2019-06-20] MEDS: Famotidine 20 MG TAB PO SCH (08:26)
[2019-06-20] MEDS: Amiodarone 200 MG TAB PO SCH (08:26)
[2019-06-20] MEDS: Metoprolol Tartrate 25 MG TAB PO SCH ×2 (08:27→20:54)
[2019-06-20] MEDS: Triple Antibiotic Oint 1 GM Packet TOP SCH (08:27)
[2019-06-20] MEDS: Aspirin Chewable 81 MG TAB PO SCH (08:27)
[2019-06-20] MEDS: Tamsulosin HCl 0.4 MG CAP PO SCH (20:54)
[2019-06-21] MEDS: Aspirin Chewable 81 MG TAB PO SCH (08:20)
[2019-06-21] MEDS: Amlodipine 5 MG TAB PO SCH (08:20)
[2019-06-21] MEDS: Amiodarone 200 MG TAB PO SCH (08:20)
[2019-06-21] MEDS: Metoprolol Tartrate 25 MG TAB PO SCH ×2 (08:20→21:34)
[2019-06-21] MEDS: Famotidine 20 MG TAB PO SCH (08:20)
[2019-06-21] MEDS: Triple Antibiotic Oint 1 GM Packet TOP PRN (08:21)
[2019-06-21] MEDS: Triple Antibiotic Oint 1 GM Packet TOP SCH (08:21)
[2019-06-21] MEDS: Tamsulosin HCl 0.4 MG CAP PO SCH (21:34)
[2019-06-22] MEDS: Amiodarone 200 MG TAB PO SCH (08:00)
[2019-06-22] MEDS: Amlodipine 5 MG TAB PO SCH (08:00)
[2019-06-22] MEDS: Famotidine 20 MG TAB PO SCH (08:00)
[2019-06-22] MEDS: Aspirin Chewable 81 MG TAB PO SCH (08:00)
[2019-06-22] MEDS: Metoprolol Tartrate 25 MG TAB PO SCH ×2 (08:00→20:50)
[2019-06-22] MEDS: Triple Antibiotic Oint 1 GM Packet TOP PRN (08:01)
[2019-06-22] MEDS: Triple Antibiotic Oint 1 GM Packet TOP SCH (08:01)
[2019-06-22] MEDS: Tamsulosin HCl 0.4 MG CAP PO SCH (20:50)
[2019-06-23] MEDS: Triple Antibiotic Oint 1 GM Packet TOP SCH (08:56)
[2019-06-23] MEDS: Amlodipine 5 MG TAB PO SCH (08:56)
[2019-06-23] MEDS: Metoprolol Tartrate 25 MG TAB PO SCH ×2 (08:57→20:24)
[2019-06-23] MEDS: Famotidine 20 MG TAB PO SCH (08:57)
[2019-06-23] MEDS: Aspirin Chewable 81 MG TAB PO SCH (08:57)
[2019-06-23] MEDS: Amiodarone 200 MG TAB PO SCH (08:59)
[2019-06-23] MEDS: Tamsulosin HCl 0.4 MG CAP PO SCH (20:24)
[2019-06-23] MEDS: Triple Antibiotic Oint 1 GM Packet TOP PRN (20:46)
[2019-06-24] MEDS: Amlodipine 5 MG TAB PO SCH (08:22)
[2019-06-24] MEDS: Famotidine 20 MG TAB PO SCH (08:23)
[2019-06-24] MEDS: Triple Antibiotic Oint 1 GM Packet TOP SCH (08:23)
[2019-06-24] MEDS: Aspirin Chewable 81 MG TAB PO SCH (08:23)
[2019-06-24] MEDS: Amiodarone 200 MG TAB PO SCH (08:23)
[2019-06-24] MEDS: Metoprolol Tartrate 25 MG TAB PO SCH ×2 (08:23→20:33)
[2019-06-24] MEDS: Tamsulosin HCl 0.4 MG CAP PO SCH (20:33)
[2019-06-25] MEDS: Aspirin Chewable 81 MG TAB PO SCH (08:11)
[2019-06-25] MEDS: Amlodipine 5 MG TAB PO SCH (08:11)
[2019-06-25] MEDS: Metoprolol Tartrate 25 MG TAB PO SCH ×2 (08:12→20:22)
[2019-06-25] MEDS: Amiodarone 200 MG TAB PO SCH (08:12)
[2019-06-25] MEDS: Famotidine 20 MG TAB PO SCH (08:12)
[2019-06-25] MEDS: Triple Antibiotic Oint 1 GM Packet TOP SCH (08:12)
[2019-06-25] MEDS: Tamsulosin HCl 0.4 MG CAP PO SCH (20:22)
[2019-06-26 07:27] VITALS: BP 134/64; TEMP 97.5
[2019-06-26] MEDS: Famotidine 20 MG TAB PO SCH (08:25)
[2019-06-26] MEDS: Amlodipine 5 MG TAB PO SCH (08:25)
[2019-06-26] MEDS: Aspirin Chewable 81 MG TAB PO SCH (08:25)
[2019-06-26] MEDS: Metoprolol Tartrate 25 MG TAB PO SCH (08:25)
[2019-06-26] MEDS: Triple Antibiotic Oint 1 GM Packet TOP SCH (08:25)
[2019-06-26] MEDS: Amiodarone 200 MG TAB PO SCH (08:26)
--- NOTE | 2019-06-27 14:08 | DIS ---
DATE OF ADMISSION: 06/09/2019 DATE OF DISCHARGE: 06/26/2019 ATTENDING/PCP: Chelsea Sims MD. ORTHO: Dr. Melendrez. CARDIO: Dr. Palacios. REASON FOR ADMISSION: Skilled rehab in [facility] bed secondary to recent fall/hospitalization. FINAL DIAGNOSES: 1. Physical deconditioning and general weakness. 2. Status post ground level fall. 3. Right knee contusion with skin abrasion. 4. Right sided facial contusion, resolved. 5. Unsteady gait. 6. Chronic atrial fibrillation, on long-term use of Coumadin. Anticoagulant was recently discontinued secondary to recent fall and huge right knee contusion. 7. Hypertension, stable. 8. Benign prostatic hypertrophy. 9. History of previous falls. CONDITION ON DISCHARGE: Stable. DISPOSITION: Home with family. DIET: Heart healthy. ACTIVITY: To use rolling walker at all times, fall precautions. FOLLOWUP: 1. Follow up with Dr. Sims in 1 to 2 weeks. 2. Follow up with Dr. Palacios in 1 week. 3. Follow up with Dr. Melendrez as previously scheduled. 4. Refer to [facility] for wound care and physical therapy. 5. . WOUND CARE INSTRUCTIONS: Clean with saline solution. Then, apply triple antibiotic t.i.d. until completely healed. Cover with Mepilex. Daily wound dressing and p.r.n. HISTORY OF PRESENT ILLNESS AND HOSPITAL COURSE: Mr. Hardy is a very pleasant 89-year-old male with significant history of chronic atrial fibrillation, on long-term use of anticoagulant/warfarin, hypertension, CAD, and chronic anemia. The patient's INR has been therapeutic. He will be monitored through PCPs clinic. On 06/07/2019, while at home, the patient fell in his backyard using his rolling walker. The patient reported there was a raised step that he did not realize and tripped over. He fell on the ground forward with right knee sustaining a huge hematoma on his anterior right knee. He also had a right-sided facial contusion. The patient was sent initially to [facility] in [place] for further evaluation. His INR at that time was therapeutic at 2.3. He had a CT scan of the brain which was unremarkable. The patient denies loss of consciousness, chest pain, vomiting, dizziness during the fall. He denies syncopal episodes or events of symptoms prior to the fall or after. The patient was initially observed in the ICU and serial examinations including neurological exams were done. Serial CT of the brain was unremarkable. The patient's Coumadin was withheld since that admission. After the patient was stabilized in the hospital, the patient was subsequently transferred to swing bed in [place] on 06/09/2019. The patient did well in rehab. He was walking 600 feet using rolling walker with standby assist prior to discharge. The patient's right anterior knee hematoma developed into blister and popped spontaneously. The wound on the anterior knee was superficial and was treated with triple antibiotic. Prior to discharge, the wound in the anterior knee is significantly healing in appearance. The huge hematoma sustained on the right anterior knee that extended up to medial thigh and lower tibia has markedly improved and faded in appearance. The associated surrounding swelling in the right lower extremity has improved markedly as well prior to discharge. The patient has been walking without significant pain on weightbearing. He has not been taking any pain medications prior to discharge. During his hospital and SNF stay, the patient's Coumadin has been withheld. There was an apparent concern from the trauma surgeon and orthopedic surgeon regarding the patient's current use of anticoagulant. Curbside consultation was made with the patient's wagon drill operator, Dr. Palacios during his rehab course. Per Dr. Palacios, the patient's chronic atrial fibrillation requires long-term use of Coumadin, but transient discontinuation of the Coumadin is recommended. Dr. Palacios agreed to the recommendation of transient discontinuation of the Coumadin while having the knee contusion. The patient's blood pressure and heart rate were observed during his rehab course. His heart rate remained rate controlled in the 70s to 80s. His blood pressure has been stable. He was maintained on low-dose aspirin during his SNF stay. The patient remained symptom free, chest pain free during the course. The patient was seen by Dr. Melendrez as outpatient on 06/13/2019 and recommended conservative management only. He will follow up with Dr. Melendrez as outpatient post discharge. The patient was also recommended to follow up with Dr. Palacios post discharge to determine further recommendations regarding his Coumadin use secondary to apparent history of falls and remained to have increased risk of falls. The patient and family including his daughter and son were into understanding and they will be discussing this further with Dr. Palacios upon followup. Vital signs prior to discharge; blood pressure 134/64, temperature 97.5, pulse 79, respirations 16, O2 saturations 96% on room air. Weight 209 pounds, height 5 feet 10 inches. Time spent on this discharge 32 minutes in examining the patient and coordinating care. Job ID: [id number]
== END 2019-06-26 18:16 | disposition home or self-care (01) | DRG 950 ==
LOC: MADMS 15:13
PROVIDERS: ADMIT Family Medicine; ATTEND Family Medicine
DX: S00.83XD Contusion of other part of head, subsequent encounter (principal); S80.01XD Contusion of right knee, subsequent encounter; I48.2 Chronic atrial fibrillation; G20 Parkinson's disease; I10 Essential (primary) hypertension; I25.10 Atherosclerotic heart disease of native coronary artery without angina pectoris; N40.0 Benign prostatic hyperplasia without lower urinary tract symptoms; W01.0XXD Fall on same level from slipping, tripping and stumbling without subsequent striking against object, subsequent encounter; R26.89 Other abnormalities of gait and mobility; K21.9 Gastro-esophageal reflux disease without esophagitis; R53.81 Other malaise; Z66 Do not resuscitate; Z95.1 Presence of aortocoronary bypass graft; Z86.73 Personal history of transient ischemic attack (TIA), and cerebral infarction without residual deficits; Z85.46 Personal history of malignant neoplasm of prostate; Z79.02 Long term (current) use of antithrombotics/antiplatelets; Z79.01 Long term (current) use of anticoagulants; Z79.82 Long term (current) use of aspirin; Z87.891 Personal history of nicotine dependence
CPT/HCPCS: 81001

== ENCOUNTER 2019-08-28 08:38 | Outpatient (CLI) | payer MEDICARE ==
[2019-08-28 09:58] LABS: %Basophils 0.3 % (0.0-1.0); %Lymphocytes 11.6 % (21.0-51.0); %Monocytes 21.7 % (0.0-10.0); %Neutrophils 65.5 % (42.0-75.0); Hemoglobin 13.1 g/dL (14.0-18.0); Mean Corpuscular HGB CONC 30.2 g/dL (32.0-36.0); Mean Corpuscular Hemoglobin 30.1 pg (27.0-31.0); Mean Corpuscular Volume 99.7 fL (78.0-98.0); Mean Platelet Volume 8.7 fL (7.4-10.4); Platelet Count 135 thou/uL (130-400); RBC Distribution Width 12.9 % (11.5-14.5); Red Blood Cell (RBC) Count 4.35 mill/uL (4.70-6.10); White Blood Cell (WBC) Count 4.3 thou/uL (4.8-10.8)
[2019-08-28 09:59] LABS: #Lymphocytes 0.5 thou/uL (1.20-3.40); #Monocytes 0.9 thou/uL (0.11-0.59); #Neutrophils 2.8 thou/uL (1.40-6.50); %Eosinophils 0.9 % (0.0-10.0)
[2019-08-28 10:20] LABS: Prothrombin Time 12.8 SEC (12.0-14.7)
[2019-08-28 10:47] LABS: Anion Gap 14 mmol/L (10-20); BUN (Urea Nitrogen) 25 mg/dL (8.4-25.7); Calc. Creatinine Clearance 0 mL/min (70-130); Carbon Dioxide 23 mmol/L (23-31); Chloride 108 mmol/L (98-107); Estimated GFR-MDRD 45; Potassium 4.2 mmol/L (3.5-5.1); Sodium 141 mmol/L (136-145)
[2019-08-28 10:48] LABS: ALT (SGPT) 11 U/L (8-55); AST (SGOT) 22 U/L (5-34); Albumin 4.2 g/dL (3.4-4.8); Alkaline Phosphatase 92 U/L (40-110); Bilirubin, Total 0.5 mg/dL (0.2-1.2); Calcium 9.2 mg/dL (7.8-10.44); Globulin 2.5 g/dL (2.4-3.5); Glucose 98 mg/dL (83-110); Protein, Total 6.7 g/dL (5.8-8.1)
[2019-08-28 17:39] LABS: Iron 66 ug/dL (65-175)
== END 2019-08-28 08:39 ==
LOC: MADLABBHPM 08:38
PROVIDERS: ATTEND Family Medicine
DX: Z51.81 Encounter for therapeutic drug level monitoring (principal); I48.20 Chronic atrial fibrillation, unspecified; Z79.01 Long term (current) use of anticoagulants; I10 Essential (primary) hypertension; D63.8 Anemia in other chronic diseases classified elsewhere
CPT/HCPCS: 36415; 80053; 82728; 83540; 85025; 85610

== ENCOUNTER 2019-12-06 13:22 | Outpatient (CLI) | payer MEDICARE ==
[2019-12-06 13:41] LABS: INR-International Normal Ratio 1.1; Prothrombin Time 13.7 SEC (12.0-14.7)
== END 2019-12-06 13:23 | disposition home or self-care (01) ==
LOC: MADLAB 13:22
PROVIDERS: ATTEND Family Medicine
DX: Z51.81 Encounter for therapeutic drug level monitoring (principal); I48.20 Chronic atrial fibrillation, unspecified; Z79.01 Long term (current) use of anticoagulants
CPT/HCPCS: 36415; 85610